=== PATIENT | female | born 1965 | race Caucasian/White ===

== ENCOUNTER 2018-01-08 04:54 | Inpatient (IN) | payer SELFPAY ==
[2018-01-08] MEDS ORDERED: DIPHENOX/ATROP SULF 1 TAB PO ONE (05:49)
[2018-01-08] MEDS ORDERED: NA CHLORIDE 0.9% 1,000 ML ONE (05:49)
[2018-01-08 05:53] LABS: Absolute Lymphocytes (CBC) 4.5 K/uL (0.7-4.9); Absolute Monocytes 0.3 K/uL (0.1-1.3); Absolute Neutrophil 6.6 K/uL (1.8-8.0); Basophils % 0.8 % (0-1.3); Eosinophils % 0.7 % (0-4.4); Hematocrit 43.8 % (36.0-45.0); Lymphocytes % 38.9 % (15.3-44.8); MCH 29.3 pg (27.0-35.0); MCV 89.4 fL (80-100); MPV 10.6 fL (7.6-11.3); Monocytes % 2.5 % (3.3-12.3); RBC Red Blood Cell Count 4.89 M/uL (3.86-4.86)
[2018-01-08 06:06] LABS: Bilirubin Direct 0.1 mg/dL (0-0.2); Bilirubin Total 0.4 mg/dL (0.3-1.2); Protein, Total 6.7 g/dL (6.0-8.3)
[2018-01-08 06:09] LABS: Potassium 2.8 mEq/L (3.6-5.0)
[2018-01-08] MEDS ORDERED: DIPHENHYDRAMINE 50 MG/ML VIAL ONE (06:51)
--- NOTE | 2018-01-08 07:08 | ER ---
Nurse's Notes [facility] Name: Astrid Gerber Age: 52 yrs Sex: Female : 1965 Arrival Date: 01/08/2018 Time: 04:57 Bed 18 Private MD: Diagnosis: Diarrhea, unspecified;Hypokalemia;Acute kidney failure Presentation: 01/08 04:55 Presenting complaint: Patient states: that at 0300 this morning that she started to have abd pain, nausea, diarrhea, numbness to all exts, felling hot and passed out hitting her head. Pt is awake, alert and oriented. Transition of care: patient was not received from another setting of care. Onset of symptoms was January 08, 2018 at 03:00. 04:55 Method Of Arrival: EMS: [facility] 04:55 Acuity: JENA 3 fc 07:16 Care prior to arrival: None. 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 - Social history:: Smoking status: Patient/guardian denies using tobacco, Patient uses alcohol, occasionally. Screenin:06 Abuse screen: Denies threats or abuse. Nutritional screening: No deficits noted. fc Tuberculosis screening: Fall Risk Fall in past 12 months (25 points). No secondary diagnosis (0 pts). No IV (0 pts). Ambulatory Aid- None/Bed Rest/Nurse Assist (0 pts). Gait- Weak (10 pts.). Mental Status- Overestimates/Forgets Limitations (15 pts.). Total Franks Fall Scale indicates Low Risk Score (25-44 pts). Fall prevention measures have been instituted. Side Rails Up X 2 Placed close to Nursing Station Frequent Obs/Assesments occuring As available Patient and Family Educated on Fall Prevention Program and strategies. Assessment: 07:15 General: Appears in no apparent distress. uncomfortable, Behavior is calm, cooperative, hj appropriate for age. Pain: Complains of pain in abdomen. Neuro: Level of Consciousness is awake, alert, obeys commands, Oriented to person, place, time, situation, Appropriate for age. Cardiovascular: Capillary refill < 3 seconds Patient's skin is warm and dry. Respiratory: Airway is patent Respiratory effort is even, unlabored, Respiratory pattern is regular, symmetrical. GI: Bowel sounds present X 4 quads. Abd is soft. : No signs and/or symptoms were reported regarding the genitourinary system. EENT: No signs and/or symptoms were reported regarding the EENT system. Derm: No signs and/or symptoms reported regarding the dermatologic system. Musculoskeletal: No signs and/or symptoms reported regarding the musculoskeletal system. 08:34 Reassessment: diarrhea x4, MD aware;. Vital Signs: 04:55 BP 132 / 85; Pulse 110; Resp 18; Temp 97.0(O); Pulse Ox 98% on R/A; Weight 102.06 kg fc (R); Height 5 ft. 4 in. (162.56 cm) (R); Pain 10/10; 07:17 BP 130 / 84; Pulse 85; Resp 18; Pulse Ox 100% on R/A; hj 04:55 Body Mass Index 38.62 (102.06 kg, 162.56 cm) ED Course: 04:55 Arm band placed on Patient placed in an exam room, on a stretcher. fc 04:55 Patient has correct armband on for positive identification. Placed in gown. Bed in low fc position. Call light in reach. Side rails up X2. 04:55 No provider procedures requiring assistance completed. fc 04:57 Patient arrived in ED. em1 05:02 Triage completed. fc 05:08 Tim Zapata MD is Attending Physician. tw4 05:19 Chao Mendoza, YANICK is Primary Nurse. bp 07:00 Initial lab(s) drawn, by ED staff, sent to lab. Inserted saline lock: 20 gauge in right hj antecubital area, using aseptic technique. Blood collected. 07:06 Justice Zaragoza MD is Hospitalizing Provider. tw4 Administered Medications: 05:33 Drug: NS 0.9% 1000 ml Route: IV; Rate: 1 bolus; Site: right antecubital; aa1 08:38 Follow up: IV Status: Completed infusion 05:33 Drug: LoMOTIL 2 tabs Route: PO; aa1 06:58 Follow up: Response: No adverse reaction bp 06:30 Drug: Benadryl 12.5 mg Route: IVP; Site: right antecubital; bp 06:59 Follow up: Response: No adverse reaction bp Outcome: 07:07 Decision to Hospitalize by Provider. tw4 08:32 Admitted to Tele accompanied by tech, family with patient, via wheelchair, room 417, with chart, Report called to YANICK Cavanaugh 08:32 Condition: stable 08:32 Instructed on the need for admit, Demonstrated understanding of instructions. 08:54 Patient left the ED. Signatures: Desire Rose RN RN aa1 Drea Muller RN RN Rodolfo Espinoza em1 Lance Jones RN RN hj Peltier, Brian RN RN Tim Pagan MD MD tw4
--- NOTE | 2018-01-08 07:08 | EDPHYS ---
Physician Documentation [facility] Name: Astrid Gerber Age: 52 yrs Sex: Female : 1965 Arrival Date: 01/08/2018 Time: 04:57 Bed 18 Private MD: ED Physician Tim Zapata HPI: 01/08 07:07 This 52 yrs old Female presents to ER via EMS with complaints of Abdominal tw4 Pain. 07:07 The patient presents to the emergency department with diarrhea. Onset: The tw4 symptoms/episode began/occurred just prior to arrival, today. Possible causes: unknown. The symptoms are aggravated by nothing. The symptoms are alleviated by nothing. Associated signs and symptoms: The patient has no apparent associated signs or symptoms. Severity of symptoms: At their worst the symptoms were moderate in the emergency department the symptoms are unchanged. The patient has not experienced similar symptoms in the past. 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 - Social history:: Smoking status: Patient/guardian denies using tobacco, Patient uses alcohol, occasionally. ROS: 07:07 Constitutional: Negative for fever, chills, and weight loss, Cardiovascular: Negative tw4 for chest pain, palpitations, and edema, Respiratory: Negative for shortness of breath, cough, wheezing, and pleuritic chest pain. 07:07 Back: Negative for injury and pain. 07:07 Abdomen/GI: Positive for diarrhea, Negative for abdominal pain, nausea and vomiting, nausea, vomiting, and diarrhea, nausea, vomiting, abdominal cramps, black/tarry stool, rectal pain, rectal bleeding, bowel incontinence. Exam: 07:07 Constitutional: This is a well developed, well nourished patient who is awake, alert, tw4 and in no acute distress. Head/Face: Normocephalic, atraumatic. Chest/axilla: Normal chest wall appearance and motion. Nontender with no deformity. No lesions are appreciated. Cardiovascular: Regular rate and rhythm with a normal S1 and S2. No gallops, murmurs, or rubs. Normal PMI, no JVD. No pulse deficits. Respiratory: Lungs have equal breath sounds bilaterally, clear to auscultation and percussion. No rales, rhonchi or wheezes noted. No increased work of breathing, no retractions or nasal flaring. 07:07 MS/ Extremity: Pulses equal, no cyanosis. Neurovascular intact. Full, normal range of motion. Neuro: Awake and alert, GCS 15, oriented to person, place, time, and situation. Cranial nerves II-XII grossly intact. Motor strength 5/5 in all extremities. Sensory grossly intact. Cerebellar exam normal. Normal gait. 07:07 Abdomen/GI: Inspection: abdomen appears normal, Bowel sounds: hyperactive, Palpation: mild abdominal tenderness, in all quadrants. Vital Signs: 04:55 BP 132 / 85; Pulse 110; Resp 18; Temp 97.0(O); Pulse Ox 98% on R/A; Weight 102.06 kg fc (R); Height 5 ft. 4 in. (162.56 cm) (R); Pain 10/10; 07:17 BP 130 / 84; Pulse 85; Resp 18; Pulse Ox 100% on R/A; hj 04:55 Body Mass Index 38.62 (102.06 kg, 162.56 cm) fc MDM: 05:08 Patient medically screened. tw4 07:07 Differential diagnosis: Nonspecific abd pain, gastritis, viral gastroenteritis, tw4 gastroenteritis. Data reviewed: vital signs, nurses notes. Test interpretation: by ED physician or midlevel provider: ECG. Counseling: I had a detailed discussion with the patient and/or guardian regarding: the historical points, exam findings, and any diagnostic results supporting the discharge/admit diagnosis. Physician consultation: Justice Zaragoza MD was contacted at 07:05, regarding admission, patient's condition, and will see patient in inpatient room. Admission orders: after a detailed discussion of the patient's condition and case, the admit orders are written by me. ED course: pt received IVF hydration and potassium replacement. Will admit to for acute kidney injury and fluid resuscitation . 07:09 Data interpreted: Pulse oximetry: Interpretation: normal. tw4 01/08 05:09 Order name: Amylase, Serum tw4 01/08 05:09 Order name: Basic Metabolic Panel tw4 01/08 05:09 Order name: CBC with Diff; Complete Time: 06:00 tw4 01/08 05:09 Order name: Creatinine for Radiology; Complete Time: 06:00 tw4 01/08 05:09 Order name: Hepatic Function 4 01/08 05:09 Order name: Lipase; Complete Time: 06:18 tw4 01/08 06:18 Interpretation: Within normal limits: LIP 34. tw4 01/08 05:09 Order name: Urine Microscopic Only 4 01/08 05:09 Order name: IV Saline Lock; Complete Time: 06:16 tw4 01/08 05:10 Order name: Amylase Level; Complete Time: 06:18 EDMS 01/08 06:18 Interpretation: Abnormal: ETHAN 211. 01/08 05:10 Order name: Basic Metabolic Panel; Complete Time: 06:18 EDMS 01/08 06:18 Interpretation: Normal except: CRE 1.27; BUN 23; GLUC 235; GFR 44; K 2.8. tw4 01/08 05:10 Order name: Liver (Hepatic) Function; Complete Time: 06:18 EDMS 01/08 06:18 Interpretation: Within normal limits. 4 01/08 05:09 Order name: Labs collected and sent; Complete Time: 06:16 tw4 Administered Medications: 05:33 Drug: NS 0.9% 1000 ml Route: IV; Rate: 1 bolus; Site: right antecubital; aa1 08:38 Follow up: IV Status: Completed infusion hj 05:33 Drug: LoMOTIL 2 tabs Route: PO; aa1 06:58 Follow up: Response: No adverse reaction bp 06:30 Drug: Benadryl 12.5 mg Route: IVP; Site: right antecubital; bp 06:59 Follow up: Response: No adverse reaction bp Disposition: 01/08/18 07:07 Hospitalization ordered by Justice Zaragoza for Observation. Preliminary diagnosis are Diarrhea, unspecified, Hypokalemia, Acute kidney failure. - Bed requested for Telemetry/MedSurg (observation). - Status is Observation. hj - Condition is Stable. - Problem is new. - Symptoms are unchanged. UTI on Admission? No Signatures: Dispatcher [employer] EDNJ Astrid Wayne RN RN kl Kern, Alissa, RN RN aa Drea Muller RN RN Lance Jones RN RN hj Kelly, Chao, Tim Liu RN, MD MD tw4 Corrections: (The following items were deleted from the chart) 08:38 05:09 Urine Dipstick-Ancillary ordered. tw4
[2018-01-08] MEDS ORDERED: LOPERAMIDE HCL 2 MG CAPSULE PO PRN (08:07)
[2018-01-08 09:15] VITALS: BMI 38.6
[2018-01-08] MEDS: KCL 20 MEQ/100 mL IVPB 20 MEQ/100 ML BAG IV SCH ×2 (09:44→13:16)
[2018-01-08] MEDS: NACHLORIDE 0.45% 1,000 ML IV SCH ×2 (09:44→18:32)
[2018-01-08 11:42] LABS: A1c Component 0.66 mg/dL; Hemoglobin A1c 6.1 % (4-6.0)
[2018-01-08] MEDS ORDERED: CYCLOBENZAPRINE 10 MG TAB PO PRN (12:00)
--- NOTE | 2018-01-08 12:38 | RAD REPORT ---
EXAM DESCRIPTION: CTAbdomen Pelvis W Contrast - 01/08/2018 12:21 pm CLINICAL HISTORY: Abdominal pain. Diarrhea. COMPARISON: None. TECHNIQUE: Biphasic CT imaging of the abdomen and pelvis was performed with 100 ml non-ionic IV cont rast. All CT scans are performed using dose optimization technique as appropriate and may include automated exposure control or mA/KV adjustment according to patient size. FINDINGS: The lung bases are clear. The liver demonstrates diffuse fatty infiltration. Several low-density lesions are noted, probably be nign cysts. No intrahepatic biliary dilatation. The spleen, pancreas, adrenal glands and kidneys are within normal limits. No bowel obstruction, free air, free fluid or abscess. Small fat containing umbilical hernia. The adriana endix is normal. No evidence of significant lymphadenopathy. No suspicious bony findings. IMPRESSION: No acute intra-abdominal or pelvic finding. Prominent fatty liver.
[2018-01-08 13:20] LABS: Hematocrit 40.5 % (36.0-45.0)
[2018-01-08] MEDS ORDERED: SODIUM CHLORIDE 0.9% 10ML INJ IV PRN (13:38)
[2018-01-08 13:54] LABS: Urine Bacteria >50 /HPF (<20); Urine RBC <5 /HPF (NONE SEEN)
[2018-01-08 13:55] LABS: Urine Culture Reflex Order REFLEXED
[2018-01-08 13:56] LABS: Calcium Oxalate Crystals- Ur PRESENT (NONE SEEN)
[2018-01-08] MEDS: PANTOPRAZOLE 40 MG INJ IVP SCH ×2 (15:15→21:39)
[2018-01-08] MEDS ORDERED: ENOXAPARIN 40 MG/0.4 ML SQ SCH (17:00)
[2018-01-08] MEDS ORDERED: MORPHINE 2 MG/ML SYR IV PRN (18:52)
[2018-01-08] MEDS ORDERED: MORPHINE 4 MG/ML SYR ONE (19:46)
[2018-01-08] MEDS: LORATADINE/PSEUDO 12HR TAB PO SCH (21:39)
--- NOTE | 2018-01-08 22:04 | HP ---
Date of Admission: 01/08/2018 Code Status: Full. Chief Complaint: Diarrhea. Primary Care Physician: Padmini Villalpando D.O. History Of Present Illness: The patient is a 52-year-old female with past medical history of hypertension, obesity, who has had recurrent episodes of constipation and diarrhea in the past, who comes in with an acute episode of abdominal pain, which is generalized, associated with some diarrhea. The patient has had multiple bowel movements past night. The patient states that the diarrhea is watery, loose and had possibly some blood mixed in it. The patient also reports some nausea and vomiting. She denies any fevers. Does report some chills. No shortness of breath or chest pain. No unusual foods or travel outside the country. The patient also reports that she breaks out in rash on her upper extremities and hives. She took Benadryl earlier and was able to control the hives. The patient came into the ER for further evaluation of her symptoms. She was found to be tachycardic at a rate of 110. Her lab workup revealed low potassium at 2.8, creatinine was elevated at 1.27 which is around her baseline. Amylase was also elevated at 211, lipase was normal. WBC count was 11.6. The patient was referred for admission for diarrhea and abdominal pain. When seen in the ER, the patient was awake, alert, oriented x3 , in some mild distress due to pain. Past Medical History: Hypertension, obesity, allergies, fatty liver disease. Past Surgical History: Laparoscopic hysterectomy and x2. Allergies: TO PENICILLIN, WHICH CAUSES HIVES. Medications: Reviewed. Social History: The patient denies any tobacco use or illicit drug use. The patient does drink occasionally. Works at the [employer]. The patient has . Has 2 children. Has good family support. Family History: Mother has heart disease. Father has hypertension. Review of Systems: An 11-point systems is reviewed, negative except as per HPI. Physical Examination: Vital Signs: Temperature 97, heart rate 110, blood pressure 132/85, respirations 18, O2 98% on room air. General: Awake, alert, oriented x3, in some mild distress. Somewhat ill- appearing, obese female. HEENT: Normocephalic and atraumatic. PERRLA. EOMI. Moist mucous membranes. Oropharynx is clear. Conjunctiva anicteric. Normal dentition. Neck: Supple. No JVD. Trachea midline. CV: S1, S2. Sinus tachycardia. Peripheral pulses are present. No murmurs. Respiratory: Moving air well bilaterally. No wheezing. No stridor. No use of accessory muscles. Gastrointestinal: Mild tenderness to palpation in the epigastric region. No rebound or guarding. No rigidity. Unable to properly assess for masses due to the patient's body habitus. Extremities: No clubbing, cyanosis, or edema. No calf tenderness. Neurologic: Cranial nerves 2-12 intact grossly. No focal neurological deficit. Speech is normal. Strength is 5/5 in bilateral upper and lower extremities. Skin: No rashes. Normal skin turgor. Laboratory Data: WBC count 11.6, H and H 14.3 and 43.8, platelets 279, neutrophils 57.1. Sodium 138, potassium 2.8, chloride 101, CO2 22, BUN 23, creatinine 1.22, glucose 235, calcium 10.2, total bilirubin 0.4, AST 39, ALT 50 , alkaline phosphatase 93, albumin 4, amylase 211, lipase 34. UA is pending. Assessment And Plan: A 52-year-old female with: 1. Acute generalized abdominal pain may be secondary to viral gastroenteritis. We will obtain CT scan of the abdomen and pelvis with contrast. 2. Acute gastroenteritis, viral versus bacterial. We will obtain stool studies including stool culture, C. diff. We will continue with IV fluids. Clear liquid diet. 3. Obesity, body mass index 38.6. 4. Essential hypertension. Resume home medications as appropriate. 5. History of fatty liver disease. 6. Hypokalemia. We will replace and monitor. We will check magnesium level. 7. Chronic kidney disease. Creatinine is 1.22, around her baseline. Continue with IV fluids and monitor. 8. Hyperglycemia. The patient denies any history of diabetes. We will check hemoglobin A1c. 9. Gastrointestinal and deep venous thrombosis prophylaxis with PPI and Lovenox. Plan: Admit the patient to Med-Surg and place as observation. ADDENDUM: Patient had episode of melanotic stool. DC lovenox (not given) SCDs. GI consult. Monitor SO PÉREZ/DOMINGUEZ Voice ID: [id number] [facility] HOSPITALChris
[2018-01-09] MEDS ORDERED: MORPHINE 4 MG/ML SYR ONE ×2 (00:55→05:33)
[2018-01-09] MEDS: NACHLORIDE 0.45% 1,000 ML IV SCH ×4 (01:01→21:32)
[2018-01-09 06:25] LABS: Absolute Lymphocytes (CBC) 1.6 K/uL (0.7-4.9); Absolute Monocytes 0.7 K/uL (0.1-1.3); Absolute Neutrophil 8.7 K/uL (1.8-8.0); Basophils % 0.1 % (0-1.3); Eosinophils % 0.7 % (0-4.4); Hematocrit 37.6 % (36.0-45.0); MCH 29.4 pg (27.0-35.0); MCV 88.5 fL (80-100); MPV 10.2 fL (7.6-11.3); Monocytes % 6.5 % (3.3-12.3); RBC Red Blood Cell Count 4.26 M/uL (3.86-4.86)
[2018-01-09 07:37] LABS: Albumin 3.5 g/dL (3.2-5.5); Bilirubin Total 0.7 mg/dL (0.3-1.2); Potassium 4.3 mEq/L (3.6-5.0); Protein, Total 6.2 g/dL (6.0-8.3)
[2018-01-09] MEDS: PANTOPRAZOLE 40 MG INJ IVP SCH (08:38)
[2018-01-09] MEDS: LORATADINE/PSEUDO 12HR TAB PO SCH ×2 (08:38→21:29)
[2018-01-09] MEDS ORDERED: LORATADINE PO SCH (09:00)
[2018-01-09] MEDS ORDERED: PSEUDOEPHEDRINE PO SCH (09:00)
[2018-01-09] MEDS ORDERED: ERYTHROMYCIN 500 MG in NA CHLORIDE 0.9% 100 ML IV ONE (10:00)
--- NOTE | 2018-01-09 10:24 | EKG ---
Test Date: 2018-01-08 Test Time: 12:45:09 Screw Machine Set Up Operator: AED MEASUREMENT RESULTS: Intervals: Rate: 76 VT: 166 QRSD: 92 QT: 382 QTc: 429 [place]: P: 45 VT: 166 QRS: 69 T: 26 INTERPRETIVE STATEMENTS: Normal sinus rhythm Normal ECG Compared to ECG 06/27/2016 16:14:07 No significant changes Electronically Signed On 01-09-18 10:23:28 CDT by Michael Cade
[2018-01-09] MEDS ORDERED: METOCLOPRAMIDE 10 MG/2mL INJ IV ONE (11:00)
[2018-01-09] MEDS ORDERED: PROPOFOL 200 MG/20 ML VIAL IV ONE ×2 (13:35→14:30)
[2018-01-09] MEDS ORDERED: Ringers Lactate 1,000 ML IV ONE (13:59)
--- NOTE | 2018-01-09 14:30 | ENDO RPT ---
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 TOPICAL ANESTHETIC: none CONSENT: The patient understands the risks and benefits of the procedure and understands that these risks include, but are not limited to: sedation, allergic reaction, infection, perforation and/or bleeding. Alternative means of evaluation and treatment include, among others: physical exam, x-rays, and/or surgical intervention. The patient elects to proceed with this endoscopic procedure. DESCRIPTION OF PROCEDURE: During intra-op preparation period all mechanical medical equipment was checked for proper function. Hand hygiene and appropriate measures for infection prevention was taken. Procedure, possible complications, and alternatives including but not limited to the possibility of bleeding, perforation, tear, infection, sepsis, need for surgery, need for blood transfusion, and anesthesia related complications were explained to the patient. After the risks, benefits and alternatives of the procedure were thoroughly explained, Informed consent was verified, confirmed and timeout was successfully executed by the treatment team. The patient was placed in the left lateral position. The patient was anesthetized with topical anesthesia. Through the anesthetized oropharyngeal area, the scope was passed without any difficulty. The EG-[id number] ([id number]) endoscope was introduced through the mouth and advanced to the third portion of the duodenum. Retroflexed views revealed a small hiatal hernia. The gastroscope was then slowly withdrawn and removed. LA Class B esophagitis was found in the lower esophagus. A small hiatal hernia was found Mild gastritis was found in the body and the antrum of the stomach. Multiple biopsies were obtained and sent to pathology. Multiple (2) were found in the anterior distal body of the stomach. A 2 mm clean-based ulcer was found in the pre-pyloric antrum. Multiple (2) erosions were found in the pre-pyloric antrum. Duodenitis was found in the bulb of the duodenum. Shallow 3 mm clean-based ulcer was found in the bulb of the duodenum. ADVERSE EVENTS: There were no complications. IMPRESSIONS: 1. LA Class B esophagitis in the lower esophagus 2. A small hiatal hernia 3. Mild gastritis in the body and the antrum of the stomach, s/p biopsies heme at edges in the anterior distal body of the stomach 5. 2 mm clean-based ulcer in the pre-pyloric antrum 6. Multiple (2) erosions in the pre-pyloric antrum 7. Duodenitis in the bulb of the duodenum 8. Shallow 3 mm clean-based ulcer in the bulb of the duodenum RECOMMENDATIONS: 1. await biopsy results 2. acid suppression therapy REPEAT EXAM: Ever Mathias Dr eSigned: Ever Mathias Dr 01/09/2018 2:29 PM cc: CPT CODES: ICD9 CODES: PATIENT NAME: Astrid Gerber MR#: [id number]
--- NOTE | 2018-01-09 14:57 | PN ---
Date of Progress Note: 01/09/2018 Subjective: The patient is seen and examined. Chart reviewed and case discussed with the RN. The p atient going for EGD this morning. The patient states that she is still having bright red blood per rectum. Review of Systems: Negative except as above. Medications: Reviewed. Physical Examination: Vital Signs: Temperature 98.4, heart rate 100, blood pressure 138/56, respirations 16, O2 97% on thao m air. General: Awake, alert, and oriented x3, in no distress. Obese female, 38.6 BMI. CV: S1, S2. No murmurs. Sinus tachycardia. Peripheral pulses present. Respiratory: Moving air well bilaterally. No wheezing. Gastrointestinal: Abdomen is soft. Mild tenderness to palpation. No guarding or rigidity. Mild di stention. Bowel sounds are positive. Extremities: No clubbing, cyanosis. Trace pedal edema. Neurologic: Nonfocal. Laboratory Data: Sodium 135, potassium 4.3, chloride 105, CO2 24, BUN 14, creatinine 0.72, glucose 1 36. Hemoglobin A1c 6.1%. Calcium 9.4, lipase 12. WBC 11.1, H and H 12.5, 37.6, platelets 172, neut rophils 78.7%. C. diff pending. Stool cultures pending. Fecal leukocyte stain shows no WBCs. CT s can of the abdomen and pelvis shows no acute inter abdominal pelvic finding, prominent fatty liver. Assessment And Plan: A 52-year-old female with; 1.Acute generalized abdominal pain, likely secondary to viral gastroenteritis versus gastrointestina l bleed. 2.Acute gastrointestinal bleed with bright red blood per rectum. Gastroenterology on the case. The patient will be going for EGD this morning. The patient does have history of hiatal hernia and has been taking Excedrin [id number] for the past few days. 3.Acute gastroenteritis. We will follow up on Clostridium difficile and stool culture. Continue IV fluids. 4.Obesity, BMI 38.6. 5.Essential hypertension, stable. 6.History of fatty liver disease, counseled. 7.Hypokalemia. Replace and monitor. 8.Prediabetes. The patient has A1c of 6.1%. Diabetic education. 9.Gastrointestinal and deep venous thrombosis prophylaxis with PPI and SCDs. No chemical anticoagul ation due to bleed. Plan: Monitor H and H. SA/MODL Voice ID: [id number] Report ID: [id number]
[2018-01-09] MEDS: MORPHINE 4 MG/ML SYR IV PRN (16:43)
[2018-01-09] MEDS: PANTOPRAZOLE INJ 80 MG in NA CHLORIDE 0.9% 250 ML IV SCH (16:43)
--- NOTE | 2018-01-09 19:38 | CON ---
Date of Consultation: 01/09/2018 Reason For Consultation: Acute change in bowel habits with hematochezia and greater than left upper quadrant and general abdominal pain with nausea, fevers, chills, night sweats. History Of Present Illness: The patient is a 52-year-old white female with history of hypertension, obesity. The patient came to hospital due to acute episode of abdominal pain, change in bowel habits , diarrhea, hematochezia with fevers, chills, night sweats, shortness of breath, and nausea. The pat ient states that she has been having these episodes over the past 2 years since a trip to [place], pos sibly related to a trip to [place] to [facility] on [address] [address] with her friend. She is the onl y one who has been having these recurrent episodes. She states it mainly happens at night, which occ ur with abdominal pain, fevers, chills, night sweats, nausea, vomiting, hives, shortness of breath, c hange in bowel habits, diarrhea, however, this is the first time that she has had hematochezia with event and she sought medical attention for that and the fact that upon awakening at 3 o'clock in morning, she once again had the abdominal pain, predominantly left upper quadrant greater than le ft lower quadrant, greater than generalized pain with fevers, chills, night sweats, nausea, no emesis in this event with diarrhea, hives, shortness of breath. However, this time she started having chris tochezia, but she has never seen before. The patient states, she ate some hot chili chicken from [employer] at 2 o'clock for lunch. She thinks that might be involved with this and also she had a steak w ith mushrooms at 10 p.m. before prior to going to bed at night on Wednesday night before this episode wo ke her up approximately 5 hours later at 3 o'clock in the morning with these severe episodes. She pa ssed out at 3:30 at home by herself when she came to, she woke and saw she was on the floor, did not know how she got there, called the father and finally called 911. Ambulance came and picked her up a nd brought to the hospital where she was noted to be tachycardic with a white count of 11.6, creatini ne elevated at 1.27, heart rate of about 310, potassium low at 2.8, amylase elevated at 211, but norm al lipase. The patient was admitted to the hospital for further evaluation and care. The patient st ates these episodes occur about approximately every month over the past 2 years. Past Medical History: Significant for hypertension, obesity. Allergies: FATTY LIVER DISEASE. Past Surgical History: Laparoscopic hysterectomy and bilateral salpingo-oophorectomy and x 2. Allergies: PENICILLIN CAUSES HIVES. Medications: See list. We will go over that in a minute. Social History: She is . Two children, son and daughter. Daughter at [employer] at [employer]. The son works at [employer] for a company called [employer]. No tobacco. Occasional alcohol. Family History: Father alive with hypertension. Mother is alive with coronary artery disease and ca rdiac stent. Review of Systems: The patient has left lower quadrant pain greater than generalized abdominal pain with nausea, fevers, chills, night sweats, shortness of breath. No of emesis right now. No sick contacts. She does hav e hematochezia, change in bowel habits, diarrhea, syncope prior to admission. She denies any hematem esis, coffee-grounds emesis, melena, hemoptysis, hematuria, dysuria, polydipsia, chest pain. She jus t has some shortness of breath. No seizure, syncope. No depression, anxiety noted. She did have fe vers at night. No muscle aches, joint aches, backaches. No depression, anxiety noted. Physical Examination: Vital Signs: The patient is 5 foot 4, 225 pounds. BMI 39 kg/m2. Temperature 99.2 degrees Fahrenhei t, pulse 108, respirations 20, blood pressure 138/76, O2 saturation 97% to 98%. General: She is an obese female, lying in bed, in no acute distress. Laughing and talking without c oncern about what is going on inside her body. HEENT: Normocephalic, atraumatic. Anicteric. Pupils equal, round, and reactive to light. Hair dis hevelled. Neck: Supple, no masses. Respirations: Clear to auscultation bilaterally. Cardiac: Slightly tachycardic. No gallops or rubs. Abdomen: Positive bowel sounds. Soft, nondistended, obese. Pain greater left upper quadrant, great er than generalized abdominal pain. Some mild guarding. No rebound. No peritoneal or Kramer sign. Extremities: No clubbing, cyanosis. She says some slight edema, she feels in the toes, it is hard t o discern trace edema at best. Neuro: Alert and oriented x3. Grossly nonfocal. 5/5 motor strength. Sensation intact to light touc h. Laboratory Data: The patient has a white count of 11.1 down from 11.6 yesterday, hemoglobin 12.5 uday n from 14.3 yesterday and hematocrit of 38, MCV of 89, platelet count 172 down from 279 yesterday, po chrissy of 79%, lymphocytes 14%, monocytes 7%, eosinophils 0.7%. Sodium 135, potassium 4.3, chloride 105 , bicarb 24, BUN of 14, creatinine of 0.7, glucose 136. Hemoglobin A1c of 6.1, calcium 9.4, magnesiu m 1.9, total bilirubin 0.7, AST 28, ALT of 40, alkaline phosphatase 80, total protein 6.2, albumin 3. 5, globulin 2.7, lipase 12. The patient's urine shows 10-20 squamous epithelials, greater than 50 ba cteria, otherwise negative looks like reflex. Urine culture done. CT abdomen and pelvis reveals fat ty liver, otherwise negative. Assessment: 1.Left upper quadrant greater than left lower quadrant generalized abdominal pain with nausea, fever s, chills, night sweats, shortness of breath. No change in bowel habits. Diarrhea currently over e past 2 years. Approximately over a month waking up at night, mainly. Eats late lunch around 12 to 2 and then laid down from 9 to 10, seems to be awakening her from sleep at night, could be due to me senteric ischemia or infection she got in [place] prior to 2 years, where this started or other, like peptic ulcer disease or some other luminal GI disorder. 2.Hematochezia. Need to investigate with a colonoscopy, possibly as outpatient. This is probably r elated to acute infection causing bleeding of the mucosa, maybe also colitis or other. 3.Change in bowel habits diarrhea. 4.Syncope Wednesday night at 3:30 a.m., awakening in the bathroom and called 911 and ambulance transfer red her to the hospital. 5.Abnormal CT revealing fatty liver. 6.Elevated glucose of 136, fasting and elevated hemoglobin A1c of 6.1, indicative of diabetes new on set. 7.History of hypertension, obesity, x2, hysterectomy, bilateral salpingo-oophorectomy. Recommendation: 1.Check stool studies. Continue IV fluids, IV antibiotics. 2.P.r.n. pain medications, antiemetics. 3.Proceed EGD. 4.Check PT/PTT. 5.Consider colonoscopy as indicated. SHONDA/DOMINGUEZ Voice ID: [id number] Report ID: [id number]
[2018-01-09] MEDS: ACETAMINOPHEN 500 MG TAB PO PRN (21:29)
[2018-01-10] MEDS: NACHLORIDE 0.45% 1,000 ML IV SCH ×3 (01:00→11:00)
[2018-01-10] MEDS: PANTOPRAZOLE INJ 80 MG in NA CHLORIDE 0.9% 250 ML IV SCH (01:09)
[2018-01-10] MEDS: ACETAMINOPHEN 500 MG TAB PO PRN ×2 (01:13→16:55)
[2018-01-10 04:21] LABS: Absolute Monocytes 1.3 K/uL (0.1-1.3); Absolute Neutrophil 8.3 K/uL (1.8-8.0); Basophils % 0.2 % (0-1.3); Eosinophils % 1.3 % (0-4.4); Hematocrit 33.9 % (36.0-45.0); Lymphocytes % 16.7 % (15.3-44.8); MCH 30.1 pg (27.0-35.0); MCV 87.9 fL (80-100); MPV 10.3 fL (7.6-11.3); Monocytes % 11.3 % (3.3-12.3); RBC Red Blood Cell Count 3.85 M/uL (3.86-4.86)
[2018-01-10] MEDS: MORPHINE 4 MG/ML SYR IV PRN ×2 (04:49→10:17)
[2018-01-10 05:06] LABS: Albumin 3.2 g/dL (3.2-5.5); Bilirubin Total 0.9 mg/dL (0.3-1.2); Potassium 3.6 mEq/L (3.6-5.0)
[2018-01-10] MEDS ORDERED: POTASSIUM 25 MEQ EFFERV TAB PO ONE (06:42)
[2018-01-10] MEDS: LORATADINE/PSEUDO 12HR TAB PO SCH ×2 (10:17→21:11)
[2018-01-10] MEDS ORDERED: SODIUM CHLORIDE 0.9% 10ML INJ IV PRN (11:31)
--- NOTE | 2018-01-10 16:58 | P.PN ---
Subjective Date of Service: 01/10/18 Primary Care Provider: nONE Chief Complaint: Abd Pain Patient seen and examined at bedside with RN. Chart reviewed. Currently patient is complaining of having some bright red blood per rectum she states that it has improved which to currently has blood in her stool. Denies having any abdominal tenderness denies having any nausea vomiting at this time has been tolerating her clear liquid diet well Review of Systems 10-point ROS is otherwise unremarkable Physical Examination - Vital Signs Temperature: 100.9 F Blood Pressure: 132/76 Pulse: 84 Respirations: 20 Pulse Ox (%): 96 - Physical Exam General: Alert, In no apparent distress, Oriented x3 HEENT: Atraumatic, PERRLA, EOMI Neck: Supple, JVD not distended Respiratory: Clear to auscultation bilaterally, Normal air movement Cardiovascular: Regular rate/rhythm, Normal S1 S2 Gastrointestinal: Normal bowel sounds, No tenderness Musculoskeletal: No tenderness Integumentary: No rashes Neurological: Normal speech, Normal tone, Normal affect Lymphatics: No axilla or inguinal lymphadenopathy - Studies Microbiology Data (last 24 hrs): 01/08/18 12:00 Clean Catch Urine [place] Count - Final >100,000 CFU/ML. 01/08/18 12:00 Clean Catch Urine - Final 01/08/18 11:27 Stool Clostridium difficile Toxin Assay - Final Medications List Reviewed: Yes Assessment & Plan - Problems (Diagnosis) (1) GI bleed Current Visit: Yes Status: Acute Plan: Acute gastrointestinal bleed with bright red blood per rectum. -Gastroenterology consulted. Appreciated Reccs -S/P EGD - Gastritis and Small non bleeding Ulcer. -Continue with PPI -IV fluids and monitor H/H Qualifiers: GI bleed type/associated pathology: gastritis Gastritis type: chronic gastritis Qualified Code(s): K29.51 - Unspecified chronic gastritis with bleeding (2) Abdominal pain Onset Date: 01/10/18 Current Visit: Yes Status: Acute Plan: Most Likely Viral Gastroenteritis -Abd pain resolved now. -IV fluids Qualifiers: Abdominal location: generalized Qualified Code(s): R10.84 - Generalized abdominal pain (3) Essential (primary) hypertension Onset Date: 01/10/18 Current Visit: Yes Status: Chronic (4) GERD (gastroesophageal reflux disease) Current Visit: No Status: Chronic Qualifiers: Esophagitis presence: without esophagitis Qualified Code(s): K21.9 - Gastro -esophageal reflux disease without esophagitis Discharge Plan: Home Plan to discharge in: 24 Hours - Code Status/Comfort Care Code Status Assessed: Yes Critical Care: No
[2018-01-10] MEDS ORDERED: PANTOPRAZOLE 40 MG INJ IVP SCH (21:00)
[2018-01-10] MEDS ORDERED: FENTANYL CITR 100 MCG/2 ML IV ONE (21:10)
[2018-01-11 05:21] LABS: Absolute Lymphocytes (CBC) 2.1 K/uL (0.7-4.9); Absolute Monocytes 1.2 K/uL (0.1-1.3); Basophils % 0.4 % (0-1.3); Hematocrit 33.8 % (36.0-45.0); Lymphocytes % 17.8 % (15.3-44.8); MCH 29.7 pg (27.0-35.0); MCV 88.6 fL (80-100); Monocytes % 10.8 % (3.3-12.3); RBC Red Blood Cell Count 3.82 M/uL (3.86-4.86)
[2018-01-11 05:38] LABS: ALT/SGPT 23 IU/L (10-60); AST/SGOT 12 IU/L (10-42); Albumin 3.1 g/dL (3.2-5.5); Alkaline Phosphatase 80 IU/L (42-121); BUN Blood Urea Nitrogen 6 mg/dL (6-20); Bicarbonate 25 mEq/L (21-31); Bilirubin Total 0.7 mg/dL (0.3-1.2); Glomerular Filtration Rate > 90 mL/min (=/>90); Glucose Level 100 mg/dL (65-120); Potassium 3.4 mEq/L (3.6-5.0); Protein, Total 6.1 g/dL (6.0-8.3); Sodium Level 138 mEq/L (135-145)
[2018-01-11 06:03] LABS: Blood Morphology Comment NOT SEEN (NOT SEEN); Platelet Estimate ADEQ
[2018-01-11] MEDS ORDERED: POTASSIUM 25 MEQ EFFERV TAB PO ONE (06:25)
[2018-01-11] MEDS: LORATADINE/PSEUDO 12HR TAB PO SCH ×2 (09:00→21:50)
[2018-01-11] MEDS: BUMETANIDE 1 MG TABLET PO SCH (09:16)
[2018-01-11] MEDS: PANTOPRAZOLE 40MG TABLET PO SCH ×2 (09:16→17:29)
--- NOTE | 2018-01-11 12:57 | P.PN ---
Subjective Date of Service: 01/11/18 Primary Care Provider: nONE Chief Complaint: Abd Pain Patient seen and examined at bedside with RN. Chart reviewed. Currently patient is still complaining of having some blood per rectum but has improved from before. Denies having any abdominal tenderness denies having any nausea vomiting at this time. has been tolerating her clear liquid diet well Review of Systems 10-point ROS is otherwise unremarkable Physical Examination - Vital Signs Temperature: 98.6 F Blood Pressure: 111/62 Pulse: 87 Respirations: 16 Pulse Ox (%): 96 - Physical Exam General: Alert, In no apparent distress, Oriented x3 HEENT: Atraumatic, PERRLA, EOMI Neck: Supple, JVD not distended Respiratory: Clear to auscultation bilaterally, Normal air movement Cardiovascular: Regular rate/rhythm, Normal S1 S2 Gastrointestinal: Normal bowel sounds, No tenderness Musculoskeletal: No tenderness Integumentary: No rashes Neurological: Normal speech, Normal tone, Normal affect Lymphatics: No axilla or inguinal lymphadenopathy - Studies Microbiology Data (last 24 hrs): 01/08/18 12:00 Clean Catch Urine [place] Count - Final >100,000 CFU/ML. 01/08/18 12:00 Clean Catch Urine - Final Medications List Reviewed: Yes Assessment & Plan - Problems (Diagnosis) (1) GI bleed Current Visit: Yes Status: Acute Plan: Acute gastrointestinal bleed with bright red blood per rectum. -Gastroenterology consulted. Appreciated Reccs -S/P EGD - Gastritis and Small non bleeding Ulcer. -Continue with PPI -IV fluids and monitor H/H -Still with Mild blood per rectum. Will observe. Qualifiers: GI bleed type/associated pathology: gastritis Gastritis type: chronic gastritis Qualified Code(s): K29.51 - Unspecified chronic gastritis with bleeding (2) Abdominal pain Onset Date: 01/10/18 Current Visit: Yes Status: Acute Plan: Most Likely Viral Gastroenteritis -Abd pain resolved now. -IV fluids Qualifiers: Abdominal location: generalized Qualified Code(s): R10.84 - Generalized abdominal pain (3) Essential (primary) hypertension Onset Date: 01/10/18 Current Visit: Yes Status: Chronic (4) GERD (gastroesophageal reflux disease) Current Visit: No Status: Chronic Qualifiers: Esophagitis presence: without esophagitis Qualified Code(s): K21.9 - Gastro -esophageal reflux disease without esophagitis
--- NOTE | 2018-01-11 13:13 | P.PN ---
Subjective Date of Service: 01/11/18 Primary Care Provider: nONE Chief Complaint: Abd Pain Subjective: Improving (Her abdominal pain, N/V, hematochezia, diarrhea have all improved.) Review of Systems 10-point ROS is otherwise unremarkable Gastrointestinal: Abdominal Pain (improved), Diarrhea (Improved) Physical Examination - Vital Signs Temperature: 98.6 F Blood Pressure: 111/62 Pulse: 87 Respirations: 16 Pulse Ox (%): 96 - Physical Exam General: Alert, In no apparent distress, Oriented x3, Cooperative HEENT: Atraumatic, Normocephalic, PERRLA, EOMI Neck: Supple Respiratory: Normal air movement Cardiovascular: Normal pulses Gastrointestinal: Soft and benign, No rebound, Tenderness (mild general), Guarding (mild) Neurological: Normal speech, Normal strength at 5/5 x4 extr - Studies Microbiology Data (last 24 hrs): 01/08/18 12:00 Clean Catch Urine [place] Count - Final >100,000 CFU/ML. 01/08/18 12:00 Clean Catch Urine - Final Medications List Reviewed: Yes Assessment And Plan - Current Problems (Diagnosis) (1) LUQ abdominal pain Current Visit: Yes Status: Acute (2) LLQ abdominal pain Current Visit: Yes Status: Acute (3) Generalized abdominal pain Current Visit: Yes Status: Acute (4) Change in bowel habits Current Visit: Yes Status: Acute (5) Diarrhea Current Visit: Yes Status: Acute (6) Hematochezia Current Visit: Yes Status: Acute (7) Nausea Current Visit: Yes Status: Acute (8) Syncope Current Visit: Yes Status: Acute - Plan REC: 1) continue PPI therapy 2) IVFs 3) await stool studies 4) consider colonoscopy as indicated, but improving now
[2018-01-11] MEDS: ACETAMINOPHEN 500 MG TAB PO PRN (17:29)
[2018-01-11] MEDS ORDERED: POTASSIUM CL SA 10 MEQ TAB PO ONE (21:00)
[2018-01-12 04:15] LABS: Absolute Lymphocytes (CBC) 2.5 K/uL (0.7-4.9); Absolute Monocytes 1.2 K/uL (0.1-1.3); Absolute Neutrophil 9.6 K/uL (1.8-8.0); Basophils % 0.3 % (0-1.3); Eosinophils % 2.4 % (0-4.4); Hematocrit 36.8 % (36.0-45.0); Lymphocytes % 18.5 % (15.3-44.8); MCH 29.4 pg (27.0-35.0); MCV 88.1 fL (80-100); MPV 9.6 fL (7.6-11.3); Monocytes % 8.7 % (3.3-12.3); RBC Red Blood Cell Count 4.18 M/uL (3.86-4.86)
[2018-01-12 04:32] LABS: Albumin 3.4 g/dL (3.2-5.5); Bilirubin Total 0.6 mg/dL (0.3-1.2); Potassium 3.6 mEq/L (3.6-5.0); Protein, Total 6.7 g/dL (6.0-8.3)
[2018-01-12] MEDS ORDERED: POTASSIUM CL SA 10 MEQ TAB PO ONE (06:05)
[2018-01-12] MEDS: ACETAMINOPHEN 500 MG TAB PO PRN (06:52)
[2018-01-12 09:03] VITALS: BP 120/60; TEMP 98.9
[2018-01-12] MEDS: BUMETANIDE 1 MG TABLET PO SCH (09:29)
[2018-01-12] MEDS: PANTOPRAZOLE 40MG TABLET PO SCH (09:31)
[2018-01-12] MEDS: LORATADINE/PSEUDO 12HR TAB PO SCH (09:32)
[2018-01-12 10:53] VITALS: O2SAT 95
--- NOTE | 2018-01-12 11:25 | P.DS ---
Admission Date: 01/09/18 Discharge Date: 01/12/18 Primary Care Provider: nONE Disposition: ROUTINE DISCHARGE Discharge Condition: GOOD Reason for Admission: Abd Pain Consultations: GI Procedures: Endoscopy - Problems (1) GI bleed Current Visit: Yes Status: Resolved Qualifiers: GI bleed type/associated pathology: gastritis Gastritis type: chronic gastritis Qualified Code(s): K29.51 - Unspecified chronic gastritis with bleeding (2) Abdominal pain Onset Date: 01/10/18 Current Visit: Yes Status: Resolved Qualifiers: Abdominal location: generalized Qualified Code(s): R10.84 - Generalized abdominal pain (3) Essential (primary) hypertension Onset Date: 01/10/18 Current Visit: Yes Status: Chronic (4) GERD (gastroesophageal reflux disease) Current Visit: No Status: Chronic Qualifiers: Esophagitis presence: without esophagitis Qualified Code(s): K21.9 - Gastro -esophageal reflux disease without esophagitis Brief History of Present Illness: The patient is a 52-year-old female with past medical history of hypertension, obesity, who has had recurrent episodes of constipation and diarrhea in the past , who comes in with an acute episode of abdominal pain, which is generalized, associated with some diarrhea. The patient has had multiple bowel movements past night. The patient states that the diarrhea is watery, loose and had possibly some blood mixed in it. The patient also reports some nausea and vomiting. She denies any fevers. Does report some chills. No shortness of breath or chest pain. No unusual foods or travel outside the country. The patient also reports that she breaks out in rash on her upper extremities and hives. She took Benadryl earlier and was able to control the hives. The patient came into the ER for further evaluation of her symptoms. She was found to be tachycardic at a rate of 110. Her lab workup revealed low potassium at 2.8, creatinine was elevated at 1.27 which is around her baseline. Amylase was also elevated at 211, lipase was normal. WBC count was 11.6. The patient was referred for admission for diarrhea and abdominal pain. When seen in the ER, the patient was awake, alert, oriented x3, in some mild distress due to pain. Hospital Course: Overall during the hospital stay patient remained stable. The patient was initially admitted to the hospital for abdominal pain and melanotic stools. GI was consulted here in the hospital and patient had an endoscopy done which was consistent with hiatal hernia, gastritis 2 mm clean based ulcer in the pre-pyloric region along with duodenitis and duodenal ulcer is well. The patient was placed on IV fluids and IV Protonix at that time and biopsy was also collected during the procedure. Patient had marked improvement in her symptoms where her diarrhea resolved and she had no longer noticed melanotic stools in her BM. Patient then was advanced to a clear liquid diet which she tolerated well after which she was advanced to full liquid diet which she tolerated well as well. Patient was then switched over to p.o. Protonix and thus was discharged home under stable condition. On the day of discharge patient did have some elevated leukocytosis for which she was given a prescription for Cipro and Flagyl. Stool studies here in the hospital was remained negative. C. diff was negative along with other microbiology as well. Patient was given a followup appointment with GI was asked to get a colonoscopy done after the GI follow up. Patient demonstrated understanding and thus was discharged home. Vital Signs/Physical Exam: Temp Pulse Resp BP Pulse Ox 98.9 F 83 16 120/60 95 01/12/18 08:00 01/12/18 08:00 01/12/18 08:00 01/12/18 08:00 01/12/18 08:00 General: Alert, In no apparent distress HEENT: Atraumatic, PERRLA, EOMI Neck: Supple, JVD not distended Respiratory: Clear to auscultation bilaterally, Normal air movement Cardiovascular: Regular rate/rhythm, Normal S1 S2 Gastrointestinal: Normal bowel sounds, No tenderness Musculoskeletal: No tenderness Integumentary: No rashes Neurological: Normal speech, Normal tone, Normal affect Lymphatics: No axilla or inguinal lymphadenopathy Laboratory Data at Discharge: WBC 13.7 K/uL (4.3-10.9) H D 01/12/18 03:37 Hgb 12.3 g/dL (12.0-15.0) 01/12/18 03:37 Hct 36.8 % (36.0-45.0) 01/12/18 03:37 Plt Count 224 K/uL (152-406) D 01/12/18 03:37 Sodium 136 mEq/L (135-145) 01/12/18 03:37 Potassium 3.6 mEq/L (3.6-5.0) 01/12/18 03:37 BUN 8 mg/dL (6-20) 01/12/18 03:37 Creatinine 0.73 mg/dL (0.44-1.00) 01/12/18 03:37 Glucose 117 mg/dL (65-120) 01/12/18 03:37 Magnesium 1.9 mg/dL (1.8-2.5) 01/08/18 09:15 Total Bilirubin 0.6 mg/dL (0.3-1.2) 01/12/18 03:37 AST 22 IU/L (10-42) 01/12/18 03:37 ALT 32 IU/L (10-60) 01/12/18 03:37 Alkaline Phosphatase 94 IU/L (42-121) 01/12/18 03:37 Amylase 211 U/L (28-100) H* 01/08/18 05:20 Lipase 12 U/L (22-51) L 01/09/18 05:55 Home Medications: Bumetanide [Bumex] 1 tab PO DAILY 01/08/18 Cyclobenzaprine [Flexeril*] 10 mg PO Q8HP 01/08/18 Loratadine/Pseudoephedrine [Claritin-D 24 Hour Tablet] 1 tab PO DAILY 01/08/18 Phentermine HCl [Adipex-P] 1 tab PO DAILY 01/08/18 Ciprofloxacin HCl [Cipro 500 MG Tablet] 500 mg PO DAILY #10 tab 01/12/18 Metronidazole [Flagyl] 500 mg PO Q8H #30 tablet 01/12/18 New Medications: Ciprofloxacin HCl [Cipro 500 MG Tablet] 500 mg PO DAILY #10 tab Metronidazole [Flagyl] 500 mg PO Q8H #30 tablet Patient Discharge Instructions: Please f/u with PCP and GI in 1 week post discharge. You will need to have a colonoscopy outpt with GI doc. New medication. Cipro. Flagyl Diet: FLD for 3 days, Soft GI diet for next 3 days, then Reg diet Followup: Ever Mathias MD [ASSOCIATE-ACTIVE - CAN ADMIT] - 1 Week
== END 2018-01-12 11:32 | disposition home or self-care (01) | DRG 379 ==
LOC: ER 04:54 → ERHOLD 08:23 → 4TH 08:30 → OBSVTOIN 01-09 11:17
PROVIDERS: ADMIT Family Medicine; ATTEND Family Medicine
PROC: 0DB68ZX Excision of Stomach, Via Natural or Artificial Opening Endoscopic, Diagnostic (ICD-10-PCS; principal; 2018-01-09 13:00)
DX: K29.51 Unspecified chronic gastritis with bleeding (principal); R00.0 Tachycardia, unspecified; E87.6 Hypokalemia; R73.03 Prediabetes; K76.0 Fatty (change of) liver, not elsewhere classified; I12.9 Hypertensive chronic kidney disease with stage 1 through stage 4 chronic kidney disease, or unspecified chronic kidney disease; N18.9 Chronic kidney disease, unspecified; R73.9 Hyperglycemia, unspecified; K44.9 Diaphragmatic hernia without obstruction or gangrene; E66.9 Obesity, unspecified; K20.9 Esophagitis, unspecified; K29.60 Other gastritis without bleeding; K29.80 Duodenitis without bleeding; K26.9 Duodenal ulcer, unspecified as acute or chronic, without hemorrhage or perforation; K25.9 Gastric ulcer, unspecified as acute or chronic, without hemorrhage or perforation; K21.9 Gastro-esophageal reflux disease without esophagitis; Z68.38 Body mass index [BMI] 38.0-38.9, adult
CPT/HCPCS: 36415; 74177; 80048; 80053; 80076; 81015; 82150; 83036; 83690; 83735; 84132; 85014; 85018; 85025; 87045; 87046; 87086; 87088; 87493; 88305; 88312; 89055; 93005; 96361; 96374; 99285; C9113; G0378; J1364; J2765; J3010; J7030; Q9967

== ENCOUNTER 2018-01-19 01:48 | Emergency (ER) | payer SELFPAY ==
[2018-01-19] MEDS ORDERED: NA CHLORIDE 0.9% 1,000 ML ONE (03:07)
[2018-01-19 03:18] LABS: Absolute Lymphocytes (CBC) 2.6 K/uL (0.7-4.9); Absolute Monocytes 0.7 K/uL (0.1-1.3); Absolute Neutrophil 3.8 K/uL (1.8-8.0); Basophils % 1.3 % (0-1.3); Eosinophils % 2.6 % (0-4.4); Hematocrit 37.2 % (36.0-45.0); Lymphocytes % 35.3 % (15.3-44.8); MCH 29.6 pg (27.0-35.0); MCV 88.4 fL (80-100); MPV 9.5 fL (7.6-11.3); Monocytes % 8.8 % (3.3-12.3); RBC Red Blood Cell Count 4.21 M/uL (3.86-4.86)
[2018-01-19 03:26] LABS: Urine Blood NEGATIVE (NEG); Urine Glucose NEGATIVE (NEG); Urine Protein NEGATIVE (NEG)
[2018-01-19 03:29] LABS: Protime INR 0.9
[2018-01-19 03:31] LABS: Potassium 3.9 mEq/L (3.6-5.0)
[2018-01-19 03:37] LABS: Albumin 3.6 g/dL (3.2-5.5); Bilirubin Direct 0.1 mg/dL (0-0.2); Bilirubin Total 0.3 mg/dL (0.3-1.2); CKMB Creatine Kinase MB 1.2 ng/ml (0.3-4.0); Magnesium 2.1 mg/dL (1.8-2.5); Protein, Total 6.7 g/dL (6.0-8.3)
--- NOTE | 2018-01-19 04:06 | ER ---
Nurse's Notes [facility] Name: Astrid Gerber Age: 52 yrs Sex: Female : 1965 Arrival Date: 01/19/2018 Time: 01:52 Bed 7 Private MD: Padmini Villalpando H Diagnosis: Syncope and collapse-near Presentation: 01/19 02:18 Presenting complaint: Patient states: she was admitted to the hospital last week for bb syncope and discharged on Wednesday the last couple of nights she is waking up with the same symptoms of feeling faint, sweating, and feeling weak. Transition of care: patient was not received from another setting of care. Onset of symptoms was January 17, 2018. Initial Sepsis Screen: Does the patient meet any 2 criteria? No. Patient's initial sepsis screen is negative. Does the patient have a suspected source of infection? No. Patient's initial sepsis screen is negative. Care prior to arrival: None. 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 - Social history:: Smoking status: Patient/guardian denies using tobacco. Screenin:14 Abuse screen: Denies threats or abuse. Denies injuries from another. Nutritional bp screening: No deficits noted. Tuberculosis screening: No symptoms or risk factors identified. Fall Risk None identified. Assessment: 02:30 General: Appears in no apparent distress. distressed, comfortable, Behavior is calm, bp cooperative, appropriate for age. Pain: Complains of pain in head. Neuro: Level of Consciousness is awake, alert, obeys commands, Oriented to person, place, time, situation, Appropriate for age. Cardiovascular: No deficits noted. Respiratory: Airway is patent Respiratory effort is even, unlabored, Respiratory pattern is regular, symmetrical. GI: Reports nausea. : No signs and/or symptoms were reported regarding the genitourinary system. EENT: No deficits noted. Derm: No deficits noted. Musculoskeletal: Circulation, motion, and sensation intact. Range of motion: intact in all extremities. 03:10 Reassessment: PT TO CT. bp 03:22 Reassessment: PT RETURNED FROM CT. bp 04:32 Reassessment: PT D/C HOME AMBULATORY FROM FAMILY, DX WITH NEAR-SYNCOPE, TO F/U WITH PCP.bp Vital Signs: 02:21 BP 121 / 69; Pulse 72; Resp 18 S; Temp 98.2(O); Pulse Ox 97% on R/A; Weight 102.06 kg bb (R); Height 5 ft. 4 in. (162.56 cm) (R); Pain 4/10; 03:10 BP 114 / 71; Pulse 76; Resp 18; Pulse Ox 97% ; bp 04:04 BP 109 / 74; Pulse 72; Resp 18; Pulse Ox 99% on R/A; mt 02:21 Body Mass Index 38.62 (102.06 kg, 162.56 cm) bb ED Course: 01:52 Patient arrived in ED. do 01:53 Padmini Villalpando DO is Private Physician. do 02:20 Triage completed. bb 02:21 Arm band placed on Patient placed in an exam room, on a stretcher, on pulse oximetry. bb Family accompanied patient. 02:22 Yazan Aranda MD is Attending Physician. antwon 02:28 Chao Mendoza, YANICK is Primary Nurse. bp 02:50 Inserted saline lock: 20 gauge in right antecubital area, using aseptic technique. bp Blood collected. 02:51 X-ray completed. Portable x-ray completed in exam room. Patient tolerated procedure kw well. 02:52 XRAY Chest (1 view) In Process Unspecified. EDMS 03:04 Radiology exam delayed due to iv/bloodwork being done. kc3 03:14 CT Head Brain wo Cont In Process Unspecified. EDMS 03:14 Patient has correct armband on for positive identification. Bed in low position. Call bp light in reach. Side rails up X2. Adult w/ patient. 04:04 Padmini Villalpando DO is Referral Physician. antwon 04:33 No provider procedures requiring assistance completed. IV discontinued, intact, bp bleeding controlled, No redness/swelling at site. Pressure dressing applied. Administered Medications: 03:00 Drug: NS 0.9% 1000 ml Route: IV; Rate: 1 bolus; Site: right antecubital; bp 04:33 Follow up: IV Status: Completed infusion; IV Intake: 1000ml bp Intake: 04:33 IV: 1000ml; Total: 1000ml. bp Outcome: 04:05 Discharge ordered by . antwon 04:34 Discharged to home ambulatory, with family. bp 04:34 Condition: stable 04:34 Discharge instructions given to patient, Instructed on discharge instructions, follow up and referral plans. Demonstrated understanding of instructions, follow-up care. 04:35 Patient left the ED. bp Signatures: Dispatcher [employer] EDMS Yazan Aranda MD MD cha Ballard, Brenda, RN RN Veronica Al Danielle do [place] Chao Amaral, RN RN Angeline Goldstein [email or web address]
--- NOTE | 2018-01-19 04:06 | EDPHYS ---
Physician Documentation [facility] Name: Astrid Gerber Age: 52 yrs Sex: Female : 1965 Arrival Date: 01/19/2018 Time: 01:52 Bed 7 Private MD: Padmini Villalpando H ED Physician Yazan Aranda HPI: 01/19 02:28 This 52 yrs old Female presents to ER via Ambulatory with complaints of antwon Weakness, Dizziness, Headache, Nausea. 02:28 This 52 yrs old Female presents to ER via Ambulatory with complaints of antwon Weakness, Dizziness, Headache, Nausea. 02:28 The patient presents to the emergency department with weakness of the. 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 - Social history:: Smoking status: Patient/guardian denies using tobacco. ROS: 02:29 Constitutional: Negative for fever, chills, and weight loss, Eyes: Negative for injury, antwon pain, redness, and discharge, ENT: Negative for injury, pain, and discharge, Neck: Negative for injury, pain, and swelling, Cardiovascular: Negative for chest pain, palpitations, and edema, Respiratory: Negative for shortness of breath, cough, wheezing, and pleuritic chest pain, Abdomen/GI: Negative for abdominal pain, nausea, vomiting, diarrhea, and constipation, Back: Negative for injury and pain, : Negative for injury, bleeding, discharge, and swelling, MS/Extremity: Negative for injury and deformity, Skin: Negative for injury, rash, and discoloration, Psych: Negative for depression, anxiety, suicide ideation, homicidal ideation, and hallucinations, Allergy/Immunology: Negative for hives, rash, and allergies, Endocrine: Negative for neck swelling, polydipsia, polyuria, polyphagia, and marked weight changes, Hematologic/Lymphatic: Negative for swollen nodes, abnormal bleeding, and unusual bruising. 02:29 Neuro: Positive for headache. Exam: 02:29 Constitutional: This is a well developed, well nourished patient who is awake, alert, antwon and in no acute distress. Head/Face: Normocephalic, atraumatic. Eyes: Pupils equal round and reactive to light, extra-ocular motions intact. Lids and lashes normal. Conjunctiva and sclera are non-icteric and not injected. Cornea within normal limits. Periorbital areas with no swelling, redness, or edema. ENT: Nares patent. No nasal discharge, no septal abnormalities noted. Tympanic membranes are normal and external auditory canals are clear. Oropharynx with no redness, swelling, or masses, exudates, or evidence of obstruction, uvula midline. Mucous membranes moist. Neck: Trachea midline, no thyromegaly or masses palpated, and no cervical lymphadenopathy. Supple, full range of motion without nuchal rigidity, or vertebral point tenderness. No Meningismus. Chest/axilla: Normal chest wall appearance and motion. Nontender with no deformity. No lesions are appreciated. Cardiovascular: Regular rate and rhythm with a normal S1 and S2. No gallops, murmurs, or rubs. Normal PMI, no JVD. No pulse deficits. Respiratory: Lungs have equal breath sounds bilaterally, clear to auscultation and percussion. No rales, rhonchi or wheezes noted. No increased work of breathing, no retractions or nasal flaring. Abdomen/GI: Soft, non-tender, with normal bowel sounds. No distension or tympany. No guarding or rebound. No evidence of tenderness throughout. Back: No spinal tenderness. No costovertebral tenderness. Full range of motion. Pelvic Exam: Normal external genitalia. Speculum exam with closed cervical os, no discharge or bleeding noted. Bimanual exam with normal adnexa, no adnexal or cervical motion tenderness. Normal uterus. Female : Normal external genitalia. Skin: Warm, dry with normal turgor. Normal color with no rashes, no lesions, and no evidence of cellulitis. MS/ Extremity: Pulses equal, no cyanosis. Neurovascular intact. Full, normal range of motion. Psych: Awake, alert, with orientation to person, place and time. Behavior, mood, and affect are within normal limits. 02:29 Neuro: Orientation: is normal, appropriate for stated age, no acute changes, Mentation: is normal, appropriate for stated age, no acute changes, Memory: is normal, appropriate for stated age, Cranial nerves: grossly normal, is grossly normal based on the patient's age, no acute changes, Cerebellar function: is grossly normal, is grossly normal based on the patient's age, no acute changes, Motor: is normal, is grossly normal based on the patient's age, Sensation: no obvious gross deficits, appropriate no acute changes, Gait: seizure activity, is not displayed by the patient. Vital Signs: 02:21 BP 121 / 69; Pulse 72; Resp 18 S; Temp 98.2(O); Pulse Ox 97% on R/A; Weight 102.06 kg bb (R); Height 5 ft. 4 in. (162.56 cm) (R); Pain 4/10; 03:10 BP 114 / 71; Pulse 76; Resp 18; Pulse Ox 97% ; bp 04:04 BP 109 / 74; Pulse 72; Resp 18; Pulse Ox 99% on R/A; mt 02:21 Body Mass Index 38.62 (102.06 kg, 162.56 cm) MDM: 02:30 Data reviewed: vital signs, nurses notes, lab test result(s), EKG, radiologic studies, [facility] CT scan, plain films. 02:34 Patient medically screened. [facility] 01/19 02:27 Order name: Basic Metabolic Panel; Complete Time: 04:02 [facility] 01/19 02:27 Order name: BNP; Complete Time: 04:02 [facility] 01/19 02:27 Order name: CBC with Diff 01/19 02:27 Order name: Ckmb; Complete Time: 04:02 [facility] 01/19 02:27 Order name: CPK; Complete Time: 04:02 [facility] 01/19 02:27 Order name: LFT's; Complete Time: 04:02 [facility] 01/19 02:28 Order name: Magnesium; Complete Time: 04:02 [facility] 01/19 02:28 Order name: PT-INR; Complete Time: 04:02 [facility] 01/19 02:28 Order name: Ptt, Activated; Complete Time: 04:02 [facility] 01/19 02:28 Order name: Troponin (emerg Dept Use Only); Complete Time: 04:02 [facility] 01/19 02:28 Order name: Lipase; Complete Time: 04:02 [facility] 01/19 02:28 Order name: Urine Culture [facility] 01/19 03:09 Order name: Urine Dipstick--Ancillary (enter results); Complete Time: 04:02 em1 01/19 04:12 Order name: CBC Smear Scan [facility] 01/19 02:28 Order name: XRAY Chest (1 view) [facility] 01/19 02:28 Order name: EKG; Complete Time: 02:28 [facility] 01/19 02:28 Order name: Cardiac monitoring; Complete Time: 02:50 [facility] 01/19 02:28 Order name: EKG - Nurse/Tech; Complete Time: 02:50 [facility] 01/19 02:28 Order name: IV Saline Lock; Complete Time: 02:52 [facility] 01/19 02:28 Order name: Labs collected and sent; Complete Time: 02:52 [facility] 01/19 02:28 Order name: O2 Per Protocol; Complete Time: 02:50 [facility] 01/19 02:28 Order name: O2 Sat Monitoring; Complete Time: 02:51 [facility] 01/19 02:28 Order name: Urine Dipstick-Ancillary (obtain specimen); Complete Time: 03:07 [facility] 01/19 02:28 Order name: CT Head Brain wo Cont [facility] Administered Medications: 03:00 Drug: NS 0.9% 1000 ml Route: IV; Rate: 1 bolus; Site: right antecubital; bp 04:33 Follow up: IV Status: Completed infusion; IV Intake: 1000ml bp Disposition: 01/19/18 04:05 Discharged to Home. Impression: Syncope and collapse - near. - Condition is Stable. - Discharge Instructions: Weakness, Near-Syncope, [id number], Syncope, [id number], Weakness, [id number]. - Medication Reconciliation Form, Thank You Letter, Antibiotic Education, Prescription Opioid Use form. - Follow up: Padmini Villalpando DO; When: Today; Reason: Recheck today's complaints, Continuance of care, Re-evaluation by your physician. - Problem is new. - Symptoms have improved. Signatures: Dispatcher [employer] EDYazan Campbell MD MD cha Ballard, Brenda, RN RN bb Chao Mendoza, RN RN bp
[2018-01-19 04:12] LABS: Blood Morphology Comment NOT SEEN (NOT SEEN); Platelet Estimate ADEQ; Urine White Blood Cell Casts OK
[2018-01-19 04:48] VITALS: TEMP 98.2
[2018-01-19 04:50] VITALS: BP 109/74; O2SAT 99
--- NOTE | 2018-01-19 07:27 | EKG ---
Test Date: 2018-01-19 Test Time: 02:45:29 [employer] Care Worker: SANDRA MEASUREMENT RESULTS: Intervals: Rate: 73 [place]: 154 QRSD: 84 QT: 366 QTc: 403 [place]: P: 14 [place]: 154 QRS: 66 T: 27 INTERPRETIVE STATEMENTS: Normal sinus rhythm Normal ECG Compared to ECG 01/08/2018 12:45:09 No significant changes Electronically Signed On 01-19-18 07:26:21 CDT by Michael Cade
--- NOTE | 2018-01-19 08:59 | RAD REPORT ---
EXAM DESCRIPTION: RAD - Chest Single View - 01/19/2018 3:00 am CLINICAL HISTORY: Hypertension COMPARISON: 11/30/2016 FINDINGS: Portable technique limits examination quality. The lungs are grossly clear. The heart is upper limit of normal in size. No displaced fractures. IMPRESSION: No acute intrathoracic process suspected.
--- NOTE | 2018-01-19 09:00 | RAD REPORT ---
EXAM DESCRIPTION: CT - Head Brain Wo Cont - 01/19/2018 4:26 am CLINICAL HISTORY: Syncope COMPARISON: 07/05/2013 TECHNIQUE: All CT scans are performed using dose optimization technique as appropriate and may inclu de automated exposure control or mA/KV adjustment according to patient size. FINDINGS: No intracranial hemorrhage, hydrocephalus or extra-axial fluid collection.No areas of brai n edema or evidence of midline shift. The paranasal sinuses and mastoids are clear. The calvarium is intact. IMPRESSION: No acute intracranial abnormality.
== END 2018-01-19 04:35 | disposition home or self-care (01) ==
LOC: ER 01:48
DX: R55 Syncope and collapse (principal); R53.1 Weakness; R51 Headache; I10 Essential (primary) hypertension; F41.9 Anxiety disorder, unspecified; Z88.0 Allergy status to penicillin
CPT/HCPCS: 36415; 70450; 71045; 80048; 80076; 81003; 82550; 82553; 83690; 83735; 83880; 84484; 85025; 85610; 85730; 87086; 87088; 93005; 96360; 96361; 99284; J7030

== ENCOUNTER 2019-09-02 13:18 | Emergency (ER) | payer SELFPAY ==
[2019-09-02] MEDS ORDERED: ALBUTEROL 2.5 MG/3 ML NEB SOL ONE (14:02)
[2019-09-02] MEDS ORDERED: dexAMETHasone 10 MG/ML VIAL ONE (14:02)
[2019-09-02] MEDS ORDERED: IPRATROPIUM BROM 0.5MG/2.5ML ONE (14:03)
--- NOTE | 2019-09-02 15:26 | RAD REPORT ---
EXAM DESCRIPTION: Jennifer Gray (2 Views)09/02/2019 3:03 pm CLINICAL HISTORY: Cough COMPARISON: 2018 FINDINGS: The lungs appear clear of acute infiltrate. The heart is normal size IMPRESSION: No acute abnormalities displayed
--- NOTE | 2019-09-02 15:31 | EDPHYS ---
Physician Documentation [facility] Name: Astrid Gerber Age: 53 yrs Sex: Female : 1965 Arrival Date: 09/02/2019 Time: 13:19 Bed 8 Private MD: ED Physician Steve Meadows HPI: 09/02 15:06 This 53 yrs old Female presents to ER via Ambulatory with complaints of nh Bronchitis. 15:06 Onset: The symptoms/episode began/occurred 1.5 week(s) ago. Associated signs and nh symptoms: Pertinent positives: cough, wheezing. Modifying factors: The patient symptoms are alleviated by nothing, the patient symptoms are aggravated by exercising. The patient has not experienced similar symptoms in the past. The patient has not recently seen a physician. Historical: - Allergies: 13:47 PENICILLINS; ss - Home Meds: 13:47 Bumex Oral daily [Active]; omeprazole 20 mg Oral cpDR 1 cap 2 times per day [Active]; ss - PMHx: 13:47 Anxiety; Hypertension; ss - PSHx: 13:47 ; Hysterectomy; ss - Immunization history:: Adult Immunizations up to date. - Social history:: Smoking status: Patient/guardian denies using tobacco. - Ebola Screening: : Patient denies exposure to infectious person Patient denies travel to an Ebola-affected area in the 21 days before illness onset. ROS: 15:06 Constitutional: Negative for fever, chills, and weight loss, Eyes: Negative for injury, nh pain, redness, and discharge, ENT: Negative for injury, pain, and discharge, Neck: Negative for injury, pain, and swelling, Cardiovascular: Negative for chest pain, palpitations, and edema, Abdomen/GI: Negative for abdominal pain, nausea, vomiting, diarrhea, and constipation, Back: Negative for injury and pain, : Negative for injury, bleeding, discharge, and swelling, MS/Extremity: Negative for injury and deformity, Skin: Negative for injury, rash, and discoloration, Neuro: Negative for headache, weakness, numbness, tingling, and seizure, Psych: Negative for depression, anxiety, suicide ideation, homicidal ideation, and hallucinations, Allergy/Immunology: Negative for hives, rash, and allergies, Endocrine: Negative for neck swelling, polydipsia, polyuria, polyphagia, and marked weight changes. 15:06 Respiratory: Positive for cough, with no reported sputum, wheezing. Exam: 15:06 Constitutional: This is a well developed, well nourished patient who is awake, alert, nh and in no acute distress. Head/Face: Normocephalic, atraumatic. Eyes: Pupils equal round and reactive to light, extra-ocular motions intact. Lids and lashes normal. Conjunctiva and sclera are non-icteric and not injected. Cornea within normal limits. Periorbital areas with no swelling, redness, or edema. ENT: Nares patent. No nasal discharge, no septal abnormalities noted. Tympanic membranes are normal and external auditory canals are clear. Oropharynx with no redness, swelling, or masses, exudates, or evidence of obstruction, uvula midline. Mucous membranes moist. Neck: Trachea midline, no thyromegaly or masses palpated, and no cervical lymphadenopathy. Supple, full range of motion without nuchal rigidity, or vertebral point tenderness. No Meningismus. Chest/axilla: Normal chest wall appearance and motion. Nontender with no deformity. No lesions are appreciated. Cardiovascular: Regular rate and rhythm with a normal S1 and S2. No gallops, murmurs, or rubs. Normal PMI, no JVD. No pulse deficits. Abdomen/GI: Soft, non-tender, with normal bowel sounds. No distension or tympany. No guarding or rebound. No evidence of tenderness throughout. Back: No spinal tenderness. No costovertebral tenderness. Full range of motion. Skin: Warm, dry with normal turgor. Normal color with no rashes, no lesions, and no evidence of cellulitis. MS/ Extremity: Pulses equal, no cyanosis. Neurovascular intact. Full, normal range of motion. Neuro: Awake and alert, GCS 15, oriented to person, place, time, and situation. Cranial nerves II-XII grossly intact. Motor strength 5/5 in all extremities. Sensory grossly intact. Cerebellar exam normal. Normal gait. 15:06 Respiratory: mild respiratory distress is noted, Respirations: normal, Breath sounds: wheezing: that is mild, is scattered. Vital Signs: 13:43 BP 130 / 85; Pulse 85; Resp 16; Temp 98.9(TE); Pulse Ox 96% on R/A; Weight 104.33 kg; ss Height 5 ft. 4 in. (162.56 cm); Pain 6/10; 16:00 BP 128 / 79; Pulse 87; Resp 17; Temp 98.9; Pulse Ox 97% ; bp 13:43 Body Mass Index 39.48 (104.33 kg, 162.56 cm) ss MDM: 13:50 Patient medically screened. nh 15:30 Data reviewed: vital signs, nurses notes, lab test result(s), radiologic studies, I nh have discussed the patient's presentation/case with the attending Emergency Department Physician; and as a result, I will discharge patient. Counseling: I had a detailed discussion with the patient and/or guardian regarding: the historical points, exam findings, and any diagnostic results supporting the discharge/admit diagnosis, lab results, radiology results, the need for outpatient follow up, to return to the emergency department if symptoms worsen or persist or if there are any questions or concerns that arise at home. 09/02 13:55 Order name: Chest Pa And Lat (2 Views) XRAY; Complete Time: 15:30 nh Administered Medications: 14:00 Drug: Albuterol - atroVENT (3:1) (2.5 mg - 0.5 mg) 3 ml Route: Nebulizer; bp 16:12 Follow up: Response: No adverse reaction bp 14:00 Drug: Dexamethasone 10 mg Route: IM; Site: right deltoid; bp 16:12 Follow up: Response: No adverse reaction bp Disposition: 16:20 Co-signature as Attending Physician, Steve Meadows MD. rn Disposition: 09/02/19 15:31 Discharged to Home. Impression: Bronchitis, not specified as acute or chronic. - Condition is Stable. - Discharge Instructions: Upper Respiratory Infection, Adult. - Prescriptions for Albuterol Sulfate 2.5 mg /3 mL (0.083 %) Inhalation Solution for Nebulization - inhale 1 unit by NEBULIZATION route every 8 hours As needed; 1 box. Medrol (Tung) 4 mg Oral Tablets, Dose Pack - take 1 tablet by ORAL route as directed - follow package instructions; 1 packet. promethazine- DM - take 5 milliliter by ORAL route every 4 hours As needed; 100 milliliter. - Medication Reconciliation Form, Thank You Letter, Antibiotic Education, Prescription Opioid Use form. - Follow up: Private Physician; When: 2 - 3 days; Reason: Recheck today's complaints. - Problem is new. - Symptoms are unchanged. Signatures: Dispatcher [employer] EDMS Thalia Cooper, COST CONTROL SUPERVISOR COST CONTROL SUPERVISOR ne Steve Meadows MD MD rn Smirch, Shelby, RN RN ss Peltier, Brian, RN RN bp Corrections: (The following items were deleted from the chart) 16:12 15:31 09/02/2019 15:31 Discharged to Home. Impression: Bronchitis, not specified as bp acute or chronic. Condition is Stable. Forms are Medication Reconciliation Form, Thank You Letter, Antibiotic Education, Prescription Opioid Use. Follow up: Private Physician; When: 2 - 3 days; Reason: Recheck today's complaints. Problem is new. Symptoms are unchanged. nh
--- NOTE | 2019-09-02 15:31 | ER ---
Nurse's Notes [facility] Name: Astrid Gerber Age: 53 yrs Sex: Female : 1965 Arrival Date: 09/02/2019 Time: 13:19 Bed 8 Private MD: Diagnosis: Bronchitis, not specified as acute or chronic Presentation: 09/02 13:44 Presenting complaint: Patient states: Productive cough and nasal congestion x 3 weeks. ss Pt reports she was put on a Z-Tung which seemed to help, but now she is getting worse again. Cough is now painful. Pt states, "I'm pretty sure I have bronchitis.". Transition of care: patient was not received from another setting of care. Onset of symptoms was August 12, 2019. Risk Assessment: Do you want to hurt yourself or someone else? Patient reports no desire to harm self or others. Initial Sepsis Screen: Does the patient meet any 2 criteria? No. Patient's initial sepsis screen is negative. Does the patient have a suspected source of infection? Yes: Productive cough/pneumonia. Care prior to arrival: None. 13:44 Method Of Arrival: Ambulatory 13:44 Acuity: JENA 3 Triage Assessment: 13:49 General: Appears in no apparent distress. comfortable, obese, Behavior is cooperative, bp appropriate for age, anxious. Pain: Denies pain. EENT: Reports nasal congestion. Neuro: No deficits noted. Cardiovascular: No deficits noted. Respiratory: Reports cough that is. GI: No signs and/or symptoms were reported involving the gastrointestinal system. : No signs and/or symptoms were reported regarding the genitourinary system. Derm: No deficits noted. Musculoskeletal: No deficits noted. Historical: - Allergies: 13:47 PENICILLINS; ss - Home Meds: 13:47 Bumex Oral daily [Active]; omeprazole 20 mg Oral cpDR 1 cap 2 times per day [Active]; ss - PMHx: 13:47 Anxiety; Hypertension; ss - PSHx: 13:47 ; Hysterectomy; ss - Immunization history:: Adult Immunizations up to date. - Social history:: Smoking status: Patient/guardian denies using tobacco. - Ebola Screening: : Patient denies exposure to infectious person Patient denies travel to an Ebola-affected area in the 21 days before illness onset. Screenin:50 Abuse screen: Denies threats or abuse. Denies injuries from another. Nutritional bp screening: No deficits noted. Tuberculosis screening: No symptoms or risk factors identified. Fall Risk None identified. Assessment: 13:50 General: SEE TRIAGE NOTE. bp 16:10 Reassessment: PT D/C HOME AMBULATORY WITH FAMILY, DX WITH BRONCHITIS. bp Vital Signs: 13:43 BP 130 / 85; Pulse 85; Resp 16; Temp 98.9(TE); Pulse Ox 96% on R/A; Weight 104.33 kg; ss Height 5 ft. 4 in. (162.56 cm); Pain 6/10; 16:00 BP 128 / 79; Pulse 87; Resp 17; Temp 98.9; Pulse Ox 97% ; bp 13:43 Body Mass Index 39.48 (104.33 kg, 162.56 cm) ss ED Course: 13:19 Patient arrived in ED. as 13:46 Triage completed. ss 13:47 Arm band placed on right wrist. ss 13:49 Chao Mendoza, YANICK is Primary Nurse. bp 13:50 Thalia Cooper FNP is PHCP. nh 13:50 Steve Meadows MD is Attending Physician. nh 13:50 Patient has correct armband on for positive identification. Bed in low position. Call bp light in reach. Side rails up X2. Adult w/ patient. 15:04 Chest Pa And Lat (2 Views) XRAY In Process Unspecified. EDMS 16:11 No provider procedures requiring assistance completed. Patient did not have IV access bp during this emergency room visit. Administered Medications: 14:00 Drug: Albuterol - atroVENT (3:1) (2.5 mg - 0.5 mg) 3 ml Route: Nebulizer; bp 16:12 Follow up: Response: No adverse reaction bp 14:00 Drug: Dexamethasone 10 mg Route: IM; Site: right deltoid; bp 16:12 Follow up: Response: No adverse reaction bp Outcome: 15:31 Discharge ordered by . nh 16:11 Discharged to home ambulatory, with family. bp 16:11 Condition: stable 16:11 Discharge instructions given to patient, Instructed on discharge instructions, follow up and referral plans. medication usage, Demonstrated understanding of instructions, follow-up care, medications, Prescriptions given X 3. 16:12 Patient left the ED. bp Signatures: Dispatcher [facility] Thalia Viramontes, DETECTOR CAR OPERATOR DETECTOR CAR OPERATOR Roshni Jacobson Shelby, RN RN ss Chao Mendoza, RN RN bp
[2019-09-02 17:35] VITALS: TEMP 98.9
[2019-09-02 17:36] VITALS: BP 128/79; O2SAT 97
== END 2019-09-02 16:12 | disposition home or self-care (01) ==
LOC: ER 13:18
DX: J40 Bronchitis, not specified as acute or chronic (principal); I10 Essential (primary) hypertension; F41.9 Anxiety disorder, unspecified; Z88.0 Allergy status to penicillin
CPT/HCPCS: 71046; 94640; 96372; 99284; J1100

== ENCOUNTER 2023-04-13 12:17 | Emergency (ER) | payer SELFPAY ==
[2023-04-13] MEDS ORDERED: NA CHLORIDE 0.9% 1,000 ML ONE (12:42)
[2023-04-13] MEDS ORDERED: KETOROLAC 30 MG/ML INJ ONE (12:42)
[2023-04-13 13:07] LABS: Absolute Lymphocytes (CBC) 2.2 K/uL (0.7-4.9); Hematocrit 41.7 % (36.0-45.0); Lymphocytes % 28.7 % (15.3-44.8); MCV 90.5 fL (80-100); MPV 9.5 fL (7.6-11.3); RBC Red Blood Cell Count 4.62 M/uL (3.86-4.86)
[2023-04-13 13:15] LABS: Specific Gravity 1.006 (1.005-1.030); Urine Bilirubin NEGATIVE (Negative); Urine Blood Negative (Negative); Urine Clarity Clear (Clear); Urine Color Colorless (Yellow); Urine Glucose NEGATIVE (Negative); Urine Protein NEGATIVE (Negative); Urine Urobilinogen Normal (Normal); Urine pH 6.5 (5.0-7.0)
--- NOTE | 2023-04-13 13:26 | RAD REPORT ---
EXAM DESCRIPTION: RAD - Chest Pa And Lat (2 Views) - 04/13/2023 12:45 pm CLINICAL HISTORY: COUGH COMPARISON: Chest Pa And Lat (2 Views) dated 09/02/2019; Chest Single View dated 01/19/2018; Chest Pa And Lat (2 Views) dated 11/30/2016; CHEST SINGLE VIEW dated 05/03/2014 TECHNIQUE: PA and lateral views of the chest were obtained. FINDINGS: The lungs are clear. Heart size is normal and central vasculature is within normal limits. No pleural effusion or pneumothorax seen. No acute bony finding noted. IMPRESSION: No acute cardiopulmonary process.
[2023-04-13 13:32] LABS: Albumin 3.9 g/dL (3.4-5.0); Bilirubin Total 0.3 mg/dL (0.2-1.0); Protein, Total 8.1 g/dL (6.4-8.2)
[2023-04-13 13:33] LABS: Potassium 3.6 mEq/L (3.5-5.1)
--- NOTE | 2023-04-13 14:12 | ER ---
Nurse's Notes [facility] Name: Astrid Gerber Age: 57 yrs Sex: Female : 1965 Arrival Date: 04/13/2023 Time: 12:17 Bed 11 Private MD: Diagnosis: Acute bronchitis, unspecified Presentation: 04/13 12:22 Chief complaint: Patient states: she has been having pain in the right side of her ap3 chest for approx 4 days, and it is not getting better. patient reports that if she moves a certain way "it takes my breath away". Patient also reports cough. Coronavirus screen: Client presents with at least one sign or symptom that may indicate coronavirus-19. Ebola Screen: No symptoms or risks identified at this time. Initial Sepsis Screen: Does the patient meet any 2 criteria? No. Patient's initial sepsis screen is negative. Does the patient have a suspected source of infection? No. Patient's initial sepsis screen is negative. Risk Assessment: Do you want to hurt yourself or someone else? Patient reports no desire to harm self or others. Onset of symptoms was April 09, 2023. 12:22 Method Of Arrival: Ambulatory ap3 12:22 Acuity: JENA 3 ap3 Triage Assessment: 12:26 General: Appears uncomfortable, Behavior is calm, cooperative. Pain: Complains of pain ap3 in mid back area Pain currently is 7 out of 10 on a pain scale. Pain began gradually. Neuro: Level of Consciousness is awake, alert, obeys commands, Oriented to person, place, time, situation. Cardiovascular: Patient's skin is warm and dry. Respiratory: Reports shortness of breath pain with movement Airway is patent Respiratory effort is even, unlabored, Respiratory pattern is regular, symmetrical. Historical: - Allergies: 12:23 PENICILLINS; ap3 - PMHx: 12:23 Hypertension; ap3 - Immunization history:: Client reports receiving the 2nd dose of the Covid vaccine. - Social history:: Smoking status: Patient reports the use of cigarette tobacco products, denies chronic smoking, but will smoke occasionally. Screenin:27 [facility] ED Fall Risk Assessment (Adult) History of falling in the last 3 months, ap3 including since admission No falls in past 3 months (0 pts). Abuse screen: Denies threats or abuse. Nutritional screening: No deficits noted. Tuberculosis screening: No symptoms or risk factors identified. Assessment: 14:27 Reassessment: No changes from previously documented assessment. Patient is alert, cm10 oriented x 3, equal unlabored respirations, skin warm/dry/pink. Patient states feeling better. Patient states symptoms have improved. Vital Signs: 12:22 Pulse 94; Resp 17; Temp 98.1; Pulse Ox 100% ; Weight 99.79 kg; Height 5 ft. 4 in. ; ap3 Pain 7/10; 14:26 BP 165 / 97; Pulse 84; Resp 18; Pulse Ox 99% ; Pain 3/10; cm10 12:22 Body Mass Index 37.76 (99.79 kg, 162.56 cm) ap3 12:22 Pain Scale: Adult ap3 14:26 Pain Scale: Adult cm10 ED Course: 12:19 Patient arrived in ED. rg4 12:23 Ovidio Estveez MD is Attending Physician. jr11 12:23 Triage completed. ap3 12:27 Arm band placed on right wrist. ap3 12:33 Nicolasa Pineda, YANICK is Primary Nurse. cm10 12:47 Chest Pa And Lat (2 Views) XRAY In Process Unspecified. EDMS 12:59 Missed attempt(s): 20 gauge in right antecubital area. Bleeding controlled, band aid cm10 applied, catheter tip intact. 13:00 Influenza Screen (a \\T\\ B) Sent. cm10 13:00 COVID-19 SARS RT PCR Sent. cm10 13:00 CBC with Diff Sent. cm10 13:00 CMP Sent. cm10 13:00 Urinalysis w/ reflexes Sent. cm10 14:27 Patient has correct armband on for positive identification. Bed in low position. Call cm10 light in reach. Provided Education on: N/A. 14:27 No provider procedures requiring assistance completed. Patient did not have IV access cm10 during this emergency room visit. intact, bleeding controlled, No redness/swelling at site. Pressure dressing applied. Administered Medications: 13:00 Not Given (Patient Refused): NS 0.9% IV 1000 ml IV at 1 bolus Per protocol; 1000 mL cm10 bolus 13:07 Not Given (Patient Refused): TORadol - Ketorolac IVP 15 mg IVP once cm10 13:07 Drug: Ketorolac IM 30 mg Route: IM; Site: right gluteus; cm10 13:52 Follow up: Response: No adverse reaction; Pain is decreased cm10 Medication: 14:27 VIS not applicable for this client. cm10 Outcome: 14:12 Discharge ordered by . ramesh 14:28 Discharged to home ambulatory. cm10 14:28 Condition: good 14:28 Discharge instructions given to patient, Instructed on discharge instructions, follow up and referral plans. medication usage, Demonstrated understanding of instructions, follow-up care, medications, Prescriptions given X 3. 14:28 Patient left the ED. cm10 Signatures: Dispatcher [employer] Zaina Hudson rg4 Melisa Pink RN RN [email or web address] Ovidio Estevez MD MD jr11 Nicolasa Pineda RN RN cm10 Corrections: (The following items were deleted from the chart) 12:26 12:23 PMHx: Anxiety; ap3 ap3
--- NOTE | 2023-04-13 14:12 | EDPHYS ---
Physician Documentation [facility] Name: Astrid Gerber Age: 57 yrs Sex: Female : 1965 Arrival Date: 04/13/2023 Time: 12:17 Bed 11 Private MD: ED Physician Ovidio Estevez HPI: 04/13 12:43 Patient is a 57-year-old female that about 4 days ago [place], jr11 paddling, complaining of pain across the lateral aspects of her lower thorax, cough, worse at night. Runny nose congestion for the last 2 to 3 days. Denies any exertional chest pain. Denies exertional pain, no tearing pain, does not radiate to the back, does not cross the diaphragm. No diaphoresis, no vomiting. No syncope or near-syncope. . Historical: - Allergies: 12:23 PENICILLINS; ap3 - PMHx: 12:23 Hypertension; ap3 - Immunization history:: Client reports receiving the 2nd dose of the Covid vaccine. - Social history:: Smoking status: Patient reports the use of cigarette tobacco products, denies chronic smoking, but will smoke occasionally. ROS: 12:43 All other systems are negative. jr11 Exam: 12:43 Constitutional: This is a well developed, well nourished patient who is awake, alert, jr11 and in no acute distress. Head/Face: Normocephalic, atraumatic. Eyes: Extra-ocular motions intact. Lids and lashes normal. Conjunctiva and sclera are non-icteric and not injected. Cornea within normal limits. Periorbital areas with no swelling, redness, or edema. ENT: BOGGY NASAL MUCOSA Chest/axilla: Normal chest wall appearance and motion. Nontender with no deformity. No lesions are appreciated. Cardiovascular: Regular rate and rhythm with a normal S1 and S2. No gallops, murmurs, or rubs. Normal PMI, no JVD. No pulse deficits. Respiratory: Lungs have equal breath sounds bilaterally, clear to auscultation and percussion. No rales, rhonchi or wheezes noted. No increased work of breathing, no retractions or nasal flaring. Abdomen/GI: Soft, non-tender, with normal bowel sounds. No distension or tympany. No guarding or rebound. No evidence of tenderness throughout. Back: No spinal tenderness. No costovertebral tenderness. Full range of motion. MS/ Extremity: Pulses equal, no cyanosis. Neurovascular intact. Full, normal range of motion. Vital Signs: 12:22 Pulse 94; Resp 17; Temp 98.1; Pulse Ox 100% ; Weight 99.79 kg; Height 5 ft. 4 in. ; ap3 Pain 7/10; 14:26 BP 165 / 97; Pulse 84; Resp 18; Pulse Ox 99% ; Pain 3/10; cm10 12:22 Body Mass Index 37.76 (99.79 kg, 162.56 cm) ap3 12:22 Pain Scale: Adult ap3 14:26 Pain Scale: Adult cm10 MDM: 12:27 Patient medically screened. jr11 12:43 Differential diagnosis: UTI, strain strain PNA. Data reviewed: vital signs, nurses jr11 notes. 14:11 ED course: Chest x-ray interpreted by me shows no pneumonia, given increasing shortness jr11 of breath with exertion, will treat with azithromycin for atypical pneumonia, bronchitis. ER warnings given all results explained. Patient feeling better.. ED course: No history of blood clots, not having severe chest pain, no concern for PE at this time. Patient comfortable with plan of care.. 04/13 12:28 Order name: CBC with Diff; Complete Time: 13:[address] [facility] 04/13 12:28 Order name: CMP; Complete Time: 13:40 04/13 12:28 Order name: Lipase; Complete Time: 13:[address] [facility] 04/13 12:28 Order name: Urinalysis w/ reflexes; Complete Time: 13:19 04/13 12:29 Order name: COVID-19 SARS RT PCR; Complete Time: 13:40 04/13 12:29 Order name: Influenza Screen (a \T\ B); Complete Time: 14:10 04/13 12:28 Order name: Chest Pa And Lat (2 Views) XRAY; Complete Time: 13:40 04/13 12:28 Order name: Labs collected and sent; Complete Time: 13:00 Administered Medications: 13:00 Not Given (Patient Refused): NS 0.9% IV 1000 ml IV at 1 bolus Per protocol; 1000 mL cm10 bolus 13:07 Not Given (Patient Refused): TORadol - Ketorolac IVP 15 mg IVP once cm10 13:07 Drug: Ketorolac IM 30 mg Route: IM; Site: right gluteus; cm10 13:52 Follow up: Response: No adverse reaction; Pain is decreased cm10 Disposition Summary: 04/13/23 14:12 Discharge Ordered Location: Home jr11 Condition: Stable jr11 Diagnosis - Acute bronchitis, unspecified jr11 Discharge Instructions: - Discharge Summary Sheet jr11 - Acute Bronchitis, Adult jr11 Forms: - Medication Reconciliation Form jr11 - Thank You Letter jr11 - Antibiotic Education jr11 - Prescription Opioid Use jr11 - Patient Portal [email or web address].htm jr11 Prescriptions: - Ibuprofen 600 mg Oral Tablet - take 1 tablet by ORAL route every 6 hours As needed take with food; 30 tablet; jr11 Refills: 0, Product Selection Permitted - Tessalon Perles 100 mg Oral Capsule - take 1 capsule by ORAL route every 8 hours As needed; 15 capsule; Refills: 0, jr11 Product Selection Permitted - Zithromax Z-Tung 250 mg Oral Tablet - take 1 tablet by ORAL route as directed for 5 days Day 1 - take two (2) tablets jr11 one time. Day 2, 3, 4 , 5 take one (1) tablet once daily.; 6 tablet; Refills: 0, Product Selection Permitted Signatures: Dispatcher [employer] Melisa May RN RN ap3 Ovidio Estevez MD MD jr11 Nicolasa Pineda RN RN cm10 Corrections: (The following items were deleted from the chart) 12:26 12:23 PMHx: Anxiety; ap3 ap3
[2023-04-13 15:24] VITALS: TEMP 98.1
[2023-04-13 15:28] VITALS: BP 165/97; O2SAT 99
== END 2023-04-13 14:28 | disposition home or self-care (01) ==
LOC: ER 12:17
DX: J20.9 Acute bronchitis, unspecified (principal)
CPT/HCPCS: 36415; 71046; 80053; 81003; 83690; 85025; 87635; 87804; J7030

== ENCOUNTER → 2023-11-10 | Emergency (ER) | payer OTHER, SELFPAY ==
[~2023-11-10] MED LIST: AZITHROMYCIN 250 MG TAB ONE; IBUPROFEN 400 MG TAB ONE; predniSONE 20 MG TAB ONE
--- NOTE | 2023-11-10 12:50 | RAD REPORT ---
EXAM DESCRIPTION: RAD - Chest Pa And Lat (2 Views) - 11/10/2023 12:33 pm CLINICAL HISTORY: COUGH COMPARISON: 04/13/2023 TECHNIQUE: PA and lateral views of the chest were obtained. FINDINGS: The lungs show no focal consolidation. Streaky parahilar opacities. Heart size is normal a nd central vasculature is within normal limits. No pleural effusion or pneumothorax seen. No acute [place] finding noted. IMPRESSION: Findings suggesting reactive airway changes or viral infection, without evidence of foca l pneumonia.
[2023-11-10 13:12] LABS: SARS-CoV-2 Antigen Rapid Res Negative (Negative)
--- NOTE | 2023-11-10 14:43 | EDPHYS ---
Physician Documentation [facility] Name: Astrid Gerber Age: 57 yrs Sex: Female : 1965 Arrival Date: 11/10/2023 Time: 11:50 Bed 15 Private MD: ED Physician Yazan Aranda HPI: 11/10 14:33 This 57 yrs old Female presents to ER via Ambulatory with complaints of Flu antwon Symptoms. 14:33 The patient or guardian reports cough, described as mild, described as moderate, flu antwon symptoms, arthralgias, low-grade fever, myalgias. Onset: The symptoms/episode began/occurred 3 day(s) ago. Modifying factors: The symptoms are alleviated by changing position, the symptoms are aggravated by activity, cold environment. Associated signs and symptoms: Pertinent positives: rhinorrhea, sore throat. Severity of symptoms: At their worst the symptoms were mild in the emergency department the symptoms are unchanged. The patient has experienced similar episodes in the past, a few times. Historical: - Allergies: 12:03 PENICILLINS; ap3 - PMHx: 12:03 Hypertension; ap3 - PSHx: 12:03 section; hysterectomy; ap3 - Immunization history:: Adult Immunizations up to date. - Social history:: Smoking status: Patient denies any tobacco usage or history of. - Family history:: not pertinent. ROS: 14:33 Constitutional: Negative for fever, chills, and weight loss, Eyes: Negative for injury, antwon pain, redness, and discharge, Neck: Negative for injury, pain, and swelling, Cardiovascular: Negative for chest pain, palpitations, and edema, Abdomen/GI: Negative for abdominal pain, nausea, vomiting, diarrhea, and constipation, Back: Negative for injury and pain, : Negative for injury, bleeding, discharge, and swelling, MS/Extremity: Negative for injury and deformity, Skin: Negative for injury, rash, and discoloration, Neuro: Negative for headache, weakness, numbness, tingling, and seizure, Psych: Negative for depression, anxiety, suicide ideation, homicidal ideation, and hallucinations, Allergy/Immunology: Negative for hives, rash, and allergies, Endocrine: Negative for neck swelling, polydipsia, polyuria, polyphagia, and marked weight changes, Hematologic/Lymphatic: Negative for swollen nodes, abnormal bleeding, and unusual bruising, 14:33 ENT: Positive for rhinorrhea, sinus congestion, sinus pain, sore throat, Exam: 14:33 Constitutional: This is a well developed, well nourished patient who is awake, alert, antwon and in no acute distress. Head/Face: Normocephalic, atraumatic. Eyes: Pupils equal round and reactive to light, extra-ocular motions intact. Lids and lashes normal. Conjunctiva and sclera are non-icteric and not injected. Cornea within normal limits. Periorbital areas with no swelling, redness, or edema. ENT: Nares patent. No nasal discharge, no septal abnormalities noted. Tympanic membranes are normal and external auditory canals are clear. Oropharynx with no redness, swelling, or masses, exudates, or evidence of obstruction, uvula midline. Mucous membranes moist. Neck: Trachea midline, no thyromegaly or masses palpated, and no cervical lymphadenopathy. Supple, full range of motion without nuchal rigidity, or vertebral point tenderness. No Meningismus. Chest/axilla: Normal chest wall appearance and motion. Nontender with no deformity. No lesions are appreciated. Cardiovascular: Regular rate and rhythm with a normal S1 and S2. No gallops, murmurs, or rubs. Normal PMI, no JVD. No pulse deficits. Abdomen/GI: Soft, non-tender, with normal bowel sounds. No distension or tympany. No guarding or rebound. No evidence of tenderness throughout. Back: No spinal tenderness. No costovertebral tenderness. Full range of motion. Skin: Warm, dry with normal turgor. Normal color with no rashes, no lesions, and no evidence of cellulitis. MS/ Extremity: Pulses equal, no cyanosis. Neurovascular intact. Full, normal range of motion. Neuro: Awake and alert, GCS 15, oriented to person, place, time, and situation. Cranial nerves II-XII grossly intact. Motor strength 5/5 in all extremities. Sensory grossly intact. Cerebellar exam normal. Normal gait. Psych: Awake, alert, with orientation to person, place and time. Behavior, mood, and affect are within normal limits. 14:33 Respiratory: mild respiratory distress is noted, Respirations: no acute changes, is not noted, Breath sounds: bronchial sounds, that are mild, decreased breath sounds, are not appreciated, rhonchi, that are mild, are scattered, stridor, is not appreciated, + upper airway congestion. Respiratory rate: 18 14:41 Musculoskeletal/extremity: DVT Exam: No signs of deep vein thrombosis. no pain, no antwon swelling, no tenderness, negative Homans' sign noted on exam, no appreciated bluish discoloration, no erythema, no increased warmth, Vital Signs: 12:04 BP 192 / 108; Pulse 94; Resp 18; Temp 98.1; Pulse Ox 97% ; Weight 108.86 kg; Height 5 ap3 ft. 4 in. ; Pain 8/10; 15:18 BP 160 / 78; Pulse 85; Resp 16; Pulse Ox 100% ; bp 12:04 Body Mass Index 41.20 (108.86 kg, 162.56 cm) ap3 12:04 Pain Scale: Adult ap3 MDM: 12:03 Patient medically screened. [facility] 14:41 Antibiotic administration: The patient is discharged and will get outpatient [facility] antibiotics, Zithromax. Data reviewed: vital signs, nurses notes, lab test result(s), radiologic studies, plain films. Consideration of Admission/Observation Escalation of care including admission/observation considered. I considered the following discharge prescriptions or medication management in the emergency department Medications were administered in the Emergency Department. See MAR. Test considered but Not performed: Labs: NO CBC , NO COMP MET. Care significantly affected by the following chronic conditions: Hypertension, Obesity. 11/10 12:06 Order name: SARS RAPID; Complete Time: 13:59 [facility] 11/10 12:06 Order name: Flu; Complete Time: 13:59 [facility] 11/10 12:06 Order name: Strep [facility] 11/10 13:13 Order name: Throat Culture [facility] 11/10 12:06 Order name: Chest Pa And Lat (2 Views) XRAY; Complete Time: 13:59 antwon Administered Medications: 12:50 Drug: Ibuprofen PO 800 mg PO once Route: PO; bp 15:01 Follow up: Response: No adverse reaction bp 15:01 Drug: AZITHromycin PO 500 mg PO once Route: PO; bp 15:01 Follow up: Response: No adverse reaction bp 15:01 Drug: predniSONE PO 60 mg PO once Route: PO; bp 15:02 Follow up: Response: No adverse reaction bp Disposition Summary: 11/10/23 14:42 Discharge Ordered Notes: Location: Home [facility] Problem: new antwon Symptoms: have improved antwon Condition: Stable [facility] Diagnosis - Cough antwon - Acute upper respiratory infection, unspecified antwon Followup: [facility] - With: Private Physician - When: 2 - 3 days - Reason: Recheck today's complaints, Continuance of care, Re-evaluation by your physician Discharge Instructions: - Discharge Summary Sheet antwon - Upper Respiratory Infection, Adult antwon - Cool Mist Vaporizer antwon - Upper Respiratory Infection, Adult, [id number] antwon - Cough, Adult, [id number] antwon - Cough, Adult [facility] Forms: - Medication Reconciliation Form [facility] - Thank You Letter [facility] - Antibiotic Education antwon - Prescription Opioid Use [facility] - Patient Portal Instructions [facility] - Leadership Thank You Letter [facility] Prescriptions: - Prednisone 20 mg Oral tablet - take 2 tablets ORAL route once daily for 4 days; 8 tablet; Refills: 0, Product [facility] Selection Permitted - Guaifenesin AC 10-100 mg/5 mL Oral liquid - take 7.5 milliliter ORAL route every 6 hours As needed PRN COUGH; 240 antwon milliliter; Refills: 0, Product Selection Permitted - Zithromax 500 mg Oral tablet - take 1 tablet ORAL route once daily for 5 days; 5 tablet; Refills: 0, Product [facility] Selection Permitted Signatures: Dispatcher [employer] Yazan Best MD MD cha Peltier, Brian, RN RN Melisa Trujillo RN RN ap3
--- NOTE | 2023-11-10 14:43 | ER ---
Nurse's Notes [facility] Name: Astrid Gerber Age: 57 yrs Sex: Female : 1965 Arrival Date: 11/10/2023 Time: 11:50 Bed 15 Private MD: Diagnosis: Cough;Acute upper respiratory infection, unspecified Presentation: 11/10 12:04 Coronavirus screen: Vaccine status: Patient reports receiving the 2nd dose of the covid ap3 vaccine. Client denies travel out of the [place] in the last 14 days. Ebola Screen: Patient denies travel to an Ebola-affected area in the 21 days before illness onset. Initial Sepsis Screen: Does the patient meet any 2 criteria? No. Patient's initial sepsis screen is negative. Does the patient have a suspected source of infection? Yes: Productive cough/pneumonia. Risk Assessment: Do you want to hurt yourself or someone else? Patient reports no desire to harm self or others. Onset of symptoms was November 07, 2023. 12:04 Method Of Arrival: Ambulatory ap3 12:04 Acuity: JENA 3 ap3 12:07 Chief complaint: Patient states: Cough, SOB, sore throat, fever, nausea since Wednesday. ll1 Similar symptoms off/on since July 2023. Triage Assessment: 12:05 General: Appears in no apparent distress. uncomfortable, obese, Behavior is calm, bp cooperative, appropriate for age. Pain: Complains of pain in head. Historical: - Allergies: 12:03 PENICILLINS; ap3 - PMHx: 12:03 Hypertension; ap3 - PSHx: 12:03 section; hysterectomy; ap3 - Immunization history:: Adult Immunizations up to date. - Social history:: Smoking status: Patient denies any tobacco usage or history of. - Family history:: not pertinent. Screenin:15 [facility] ED Fall Risk Assessment (Adult) History of falling in the last 3 months, bp including since admission No falls in past 3 months (0 pts). Abuse screen: Denies threats or abuse. Denies injuries from another. Nutritional screening: No deficits noted. Tuberculosis screening: No symptoms or risk factors identified. Assessment: 12:05 General: SEE TRIAGE NOTE. bp 15:15 Reassessment: [facility]. bp Vital Signs: 12:04 BP 192 / 108; Pulse 94; Resp 18; Temp 98.1; Pulse Ox 97% ; Weight 108.86 kg; Height 5 ap3 ft. 4 in. ; Pain 8/10; 15:18 BP 160 / 78; Pulse 85; Resp 16; Pulse Ox 100% ; bp 12:04 Body Mass Index 41.20 (108.86 kg, 162.56 cm) ap3 12:04 Pain Scale: Adult ap3 ED Course: 12:00 Patient arrived in ED. mg5 12:03 Yazan Aranda MD is Attending Physician. [facility] 12:05 Triage completed. ap3 12:05 Arm band placed on Patient placed in an exam room, on a stretcher. ap3 12:06 Chao Mendoza, RN is Primary Nurse. bp 12:32 Chest Pa And Lat (2 Views) XRAY Sent. bp 12:35 Chest Pa And Lat (2 Views) XRAY In Process Unspecified. EDMS 15:15 Patient has correct armband on for positive identification. bp 15:15 No provider procedures requiring assistance completed. Patient did not have IV access bp during this emergency room visit. Administered Medications: 12:50 Drug: Ibuprofen PO 800 mg PO once Route: PO; bp 15:01 Follow up: Response: No adverse reaction bp 15:01 Drug: AZITHromycin PO 500 mg PO once Route: PO; bp 15:01 Follow up: Response: No adverse reaction bp 15:01 Drug: predniSONE PO 60 mg PO once Route: PO; bp 15:02 Follow up: Response: No adverse reaction bp Medication: 15:15 VIS not applicable for this client. bp Outcome: 14:42 Discharge ordered by . antwon 15:15 Discharged to home ambulatory, bp 15:15 Condition: stable 15:15 Discharge instructions given to patient, Instructed on discharge instructions, follow up and referral plans. medication usage, Demonstrated understanding of instructions, follow-up care, medications, Prescriptions given X 3, 15:21 Patient left the ED. bp Signatures: Dispatcher [employer] EDAK Yazan Aranda MD MD cha Peltier, Brian, RN RN bp Melisa Pink RN RN ankita3 Darion Wayne RN RN ll1 Es Figueredo mg5
[2023-11-11 22:41] VITALS: BP 160/78; TEMP 98.1; O2SAT 100
== END ==
LOC: ER 11:50
DX: J06.9 Acute upper respiratory infection, unspecified (principal); Z11.52 Encounter for screening for COVID-19; I10 Essential (primary) hypertension; Z88.0 Allergy status to penicillin
CPT/HCPCS: 36415; 71046; 87070; 87081; 87804; 87811; J7512

== ENCOUNTER 2024-02-08 07:51 | Emergency (ER) | payer OTHER ==
[2024-02-08] MEDS ORDERED: KETOROLAC 30 MG/ML INJ ONE (08:11)
[2024-02-08] MEDS ORDERED: FAMOTIDINE 20 MG/2 ML VIAL IV ONE (08:11)
[2024-02-08] MEDS ORDERED: ONDANSETRON 4 MG/2 ML VIAL ONE (08:11)
[2024-02-08] MEDS ORDERED: NA CHLORIDE 0.9% 1,000 ML ONE (08:12)
[2024-02-08 08:28] LABS: Absolute Eosinophils 0.2 K/uL (0-0.5); Absolute Lymphocytes (CBC) 1.9 K/uL (0.7-4.9); Absolute Monocytes 0.6 K/uL (0.1-1.3); Absolute Neutrophil 3.7 K/uL (1.8-8.0); Basophils % 0.5 % (0-1.3); Hematocrit 40.3 % (36.0-45.0); Hemoglobin 13.6 g/dL (12.0-15.0); Lymphocytes % 30.1 % (15.3-44.8); MCH 30.1 pg (27.0-35.0); MCHC 33.8 g/dL (32.0-36.0); MCV 89.1 fL (80-100); MPV 10.3 fL (7.6-11.3); Monocytes % 9.4 % (3.3-12.3); Platelets 211 thou/uL (152-406); RBC Red Blood Cell Count 4.52 M/uL (3.86-4.86)
[2024-02-08 08:35] LABS: Specific Gravity 1.021 (1.005-1.030); Sqamous Epithelial <5 /HPF (None Seen); Urine Bacteria None Seen /HPF (<20); Urine Bilirubin NEGATIVE (Negative); Urine Blood Negative (Negative); Urine Clarity Clear (Clear); Urine Color Light-Yellow (Yellow); Urine Culture Reflex Order NOT NEEDED; Urine Glucose NEGATIVE (Negative); Urine Ketones NEGATIVE (Negative); Urine Microscopic Reflex YN ORDER UMIC; Urine Mucus Slight /HPF (None Seen); Urine Nitrite NEGATIVE (Negative); Urine Protein 1+ (Negative); Urine RBC <5 /HPF (None Seen); Urine Urobilinogen Normal (Normal); Urine WBC <5 /HPF (<5); Urine pH 5.5 (5.0-7.0)
[2024-02-08 08:59] LABS: Albumin/Globulin Ratio 1.1 (1.1-1.8); Anion Gap 2.1 mEq/L (5.0-15.0); Bilirubin Total 0.5 mg/dL (0.2-1.0); Globulin 3.7 g/dL (2.3-3.5); Potassium 3.1 mEq/L (3.5-5.1); Protein, Total 7.7 g/dL (6.4-8.2); Troponin High Sensitivity 4.3 pg/mL (<58.9)
[2024-02-08] MEDS ORDERED: POTASSIUM CL SA 10 MEQ TAB PO ONE (09:13)
[2024-02-08] MEDS ORDERED: KCL 20 MEQ/100 mL IVPB 100 ML IV ONE (09:13)
--- NOTE | 2024-02-08 09:29 | RAD REPORT ---
EXAM DESCRIPTION: CTAbdomen Pelvis W Contrast - 02/08/2024 9:15 am CLINICAL HISTORY: Abdominal pain. ABD PAIN COMPARISON: Abdomen Pelvis W Contrast dated 01/08/2018 TECHNIQUE: Biphasic CT imaging of the abdomen and pelvis was performed with 100 ml non-ionic IV cont rast. All CT scans are performed using dose optimization technique as appropriate and may include automated exposure control or mA/KV adjustment according to patient size. FINDINGS: The lung bases are clear. The liver demonstrates mild fatty infiltration. Benign cysts are present. No intra or extrahepatic bi liary tree dilatation. The spleen, pancreas, adrenal glands and kidneys are within normal limits. No bowel obstruction, free air, free fluid or abscess. Moderate stool is present throughout the colon . The appendix is normal. No evidence of significant lymphadenopathy. No suspicious bony findings. Prominent disc bulges lower lumbar spine. IMPRESSION: No acute intra-abdominal or pelvic finding. Prominent diffuse fatty liver.
[2024-02-08] MEDS ORDERED: NA CHLORIDE 0.9% 250 ML ONE (11:14)
--- NOTE | 2024-02-08 11:32 | EDPHYS ---
Physician Documentation [facility] Name: Astrid Gerber Age: 58 yrs Sex: Female : 1965 Arrival Date: 02/08/2024 Time: 07:51 Bed 8 Private MD: ED Physician Jaime Askew HPI: 02/07 08:08 This 58 yrs old Female presents to ER via Ambulatory with complaints of ec2 Abdominal Pain, Diarrhea. 08:08 Patient arrives today for abdominal pain ongoing for 1 day. Patient has been having ec2 upper abdominal pain. Patient reports she also having some occasional cough. Patient reports she been having some diarrhea ongoing for approximately 1 week. Patient reports no vomiting. Patient denies any fevers or chills.. Historical: - Allergies: 08:07 PENICILLINS; ap3 - PMHx: 08:07 Hypertension; ap3 - PSHx: 08:07 section; hysterectomy; ap3 - Immunization history:: Client reports receiving the 2nd dose of the Covid vaccine. - Social history:: Smoking status: unknown. ROS: 08:09 Constitutional: as per hpi ec2 Exam: 08:09 Constitutional: GEN: NAD Head: atraumatic Eyes: EOMI Ears: External ears are ec2 normal. CV: regular rate LUNGS: no respiratory distress ABD: non-distended, soft, nontender, no guarding, not rigid SKIN: no evidence of rashes MSK: no evidence of trauma NEURO: moves all extremities equally Vital Signs: 08:04 BP 160 / 102; Pulse 59; Resp 18; Temp 97.8(O); Pulse Ox 99% on R/A; Weight 106.14 kg; ap3 Height 5 ft. 4 in. ; Pain 8/10; 09:15 BP 149 / 103; Pulse 52; Resp 18; Pulse Ox 99% on R/A; db 10:00 BP 159 / 83; Pulse 62; Resp 18; Pulse Ox 98% on R/A; db 11:00 BP 114 / 62; Pulse 64; Resp 18; Temp 97.9; Pulse Ox 98% ; db 08:04 Body Mass Index 40.17 (106.14 kg, 162.56 cm) ap3 08:04 Pain Scale: Adult ap3 MDM: 08:08 Patient medically screened. ec2 08:09 Data reviewed: vital signs. ED course: Patient arrives today for abdominal pain along ec2 with diarrhea. Examination remarkable for well-appearing nontoxic dividual is otherwise in no acute distress with reassuring abdominal examination. Plan is to obtain lab work, urine studies, EKG as well as CT imaging. Evaluating for appendicitis, diverticulitis, UTI.. 08:33 ED course: EKG independently reviewed and interpreted by me, shows normal sinus rhythm, ec2 rate of 58, no acute ST segment elevations, intervals are nonconcerning. . 08:37 ED course: CBC nonactionable. Urine noninfectious appearing. . ec2 09:06 ED course: Metabolic profile shows slight hypokalemia with a potassium of 3.1. Lipase ec2 within normal ranges, troponin within normal ranges. Will supplement the patient potassium . 09:51 ED course: CT imaging shows no acute intra-abdominal process, does show fatty liver. I ec2 updated the patient regarding the results. Patient continues to receive potassium, will discharge after completion of this.. 02/07 08:08 Order name: CBC with Diff; Complete Time: 08:37 ec2 02/07 08:08 Order name: CMP; Complete Time: 09:05 ec2 02/07 08:08 Order name: Lipase; Complete Time: 09:05 ec2 07 08:08 Order name: Urinalysis w/ reflexes; Complete Time: 08:37 ec2 02/07 08:09 Order name: Troponin HS; Complete Time: 09:05 ec2 02/07 08:08 Order name: CT Abd/Pelvis - IV Contrast Only; Complete Time: 09:49 ec2 02/07 08:08 Order name: IV Saline Lock; Complete Time: 08:10 ec2 02/07 08:08 Order name: Labs collected and sent; Complete Time: 08:10 ec2 02/07 08:09 Order name: EKG - Nurse/Tech; Complete Time: 08:32 ec2 02/07 09:53 Order name: Misc. Order: d/c after IV potassium complete; Complete Time: 10:05 ec2 Administered Medications: 08:12 Drug: TORadol - Ketorolac IVP 15 mg IVP once Route: IVP; Site: right antecubital; rs5 11:48 Follow up: Response: No adverse reaction db 08:12 Drug: Ondansetron IVP 4 mg IVP once; over 2 minutes Route: IVP; Site: right antecubital;rs5 11:49 Follow up: Response: No adverse reaction db 08:13 Drug: Famotidine IVP 20 mg IVP once; dilute with 10 mL 0.9% NaCl; give over 2 minutes rs5 Route: IVP; Site: right antecubital; 11:48 Follow up: Response: No adverse reaction db 08:15 Drug: NS 0.9% IV 1000 ml IV at 1 bolus Per protocol; 1000 mL bolus Route: IV; Rate: 1 rs5 bolus; Site: right antecubital; 11:48 Follow up: Response: No adverse reaction; IV Status: Completed infusion; IV Intake: db 1000ml 09:20 Drug: Potassium Chloride IV 20 mEq IV at calculated rate once; administer over 1-2 rs5 hours Route: IV; Rate: calculated rate; Site: right antecubital; 11:35 Follow up: Response: No adverse reaction; IV Status: Completed infusion; IV Intake: db 100ml 09:20 Drug: Potassium Chloride PO 40 mEq PO once Route: PO; rs5 11:48 Follow up: Response: No adverse reaction db Disposition Summary: 02/08/24 11:31 Discharge Ordered Notes: Location: Home ec2 Condition: Stable ec2 Diagnosis - Abdominal pain, Generalized ec2 - Diarrhea, unspecified ec2 - Hypokalemia ec2 Followup: ec2 - With: Private Physician - When: - Reason: Re-evaluation by your physician Discharge Instructions: - Discharge Summary Sheet ec2 - Potassium Content of Foods ec2 - Diarrhea, Adult, [id number] ec2 Forms: - Medication Reconciliation Form ec2 - Antibiotic Education ec2 - Prescription Opioid Use ec2 - Patient Portal Instructions ec2 - Leadership Thank You Letter ec2 Prescriptions: - Zofran 4 mg Oral Tablet - take 1 tablet ORAL route every 12 hours As needed; 20 tablet; Refills: 0, ec2 Product Selection Permitted Signatures: Dispatcher [employer] Melisa May RN RN ap3 Yair Be RN RN rs5 Jaime Askew MD MD ec2 Shanti Griffin RN db Corrections: (The following items were deleted from the chart) 08:09 08:09 CBC+H.LAB.BRZ ordered. EDMS EDMS 08:09 08:09 COMPREHENSIVE METABOLIC PANEL+C.LAB.BRZ ordered. EDMS EDMS 08: 08:09 LIPASE+C.LAB.BRZ ordered. EDMS EDMS 08: 08:09 Urinalysis+U.LAB.BRZ ordered. EDMS EDMS
--- NOTE | 2024-02-08 11:32 | ER ---
Nurse's Notes [facility] Name: Astrid Gerber Age: 58 yrs Sex: Female : 1965 Arrival Date: 02/08/2024 Time: 07:51 Bed 8 Private MD: Diagnosis: Abdominal pain, Generalized;Diarrhea, unspecified;Hypokalemia Presentation: 02/07 08:04 Chief complaint: Patient states: she has been having right upper quadrant pain since ap3 approx 0100 this morning after eating what she believes to be a bad ham and cheese sand which, and is also feeling faint and dizzy X's 1 hour. patient also states she has been having diarrhea for a week. Patient currently rates her pain as a 8/10 on the pain scale. Coronavirus screen: At this time, the client does not indicate any symptoms associated with coronavirus-19. Ebola Screen: No symptoms or risks identified at this time. Initial Sepsis Screen: Does the patient meet any 2 criteria? No. Patient's initial sepsis screen is negative. Does the patient have a suspected source of infection? No. Patient's initial sepsis screen is negative. Risk Assessment: Do you want to hurt yourself or someone else? Patient reports no desire to harm self or others. Onset of symptoms was February 08, 2024 at 01:00. 08:04 Method Of Arrival: Ambulatory ap3 08:04 Acuity: JENA 3 ap3 Triage Assessment: 08:09 General: Appears in no apparent distress. Behavior is calm, cooperative, appropriate ap3 for age. Pain: Complains of pain in right upper quadrant Pain currently is 8 out of 10 on a pain scale. Pain began 0100 this morning. Neuro: Level of Consciousness is awake, alert, obeys commands, Oriented to person, place, time, situation. Cardiovascular: Patient's skin is warm and dry. Respiratory: Airway is patent Respiratory effort is even, unlabored. GI: Reports upper abdominal pain, nausea. Historical: - Allergies: 08:07 PENICILLINS; ap3 - PMHx: 08:07 Hypertension; ap3 - PSHx: 08:07 section; hysterectomy; ap3 - Immunization history:: Client reports receiving the 2nd dose of the Covid vaccine. - Social history:: Smoking status: unknown. Screenin:08 Abuse screen: Denies threats or abuse. Nutritional screening: No deficits noted. ap3 Tuberculosis screening: No symptoms or risk factors identified. 11:49 [facility] ED Fall Risk Assessment (Adult) History of falling in the last 3 months, db including since admission No falls in past 3 months (0 pts) Confusion or Disorientation No (0 pts) Intoxicated or Sedated No (0 pts) Impaired Gait No (0 pts) Mobility Assist Device Used No (0 pt) Altered Elimination No (0 pt) Score/Fall Risk Level 0 - 2 = Low Risk Oriented to surroundings, Maintained a safe environment. Assessment: 08:00 General: Appears in no apparent distress. uncomfortable, Behavior is calm, cooperative. rs5 Pain: Complains of pain in abdomen Pain currently is 7 out of 10 on a pain scale. Quality of pain is described as aching, Is continuous. Neuro: Level of Consciousness is awake, alert, obeys commands, Oriented to person, place, time, situation. Cardiovascular: Patient's skin is warm and dry. Rhythm is regular. Respiratory: Airway is patent Respiratory effort is even, unlabored, Respiratory pattern is regular, symmetrical. GI: Abdomen is round non-distended, Bowel sounds present X 4 quads. Abd is soft and non tender X 4 quads. Reports nausea. : No signs and/or symptoms were reported regarding the genitourinary system. EENT: No signs and/or symptoms were reported regarding the EENT system. Derm: Skin is intact, Skin is dry, Skin is normal, Skin temperature is warm. Musculoskeletal: Range of motion: intact in all extremities. 09:05 Reassessment: Patient and/or family updated on plan of care and expected duration. Pain rs5 level reassessed. Patient is alert, oriented x 3, equal unlabored respirations, skin warm/dry/pink. Patient states feeling better. Patient states symptoms have improved. 10:00 Reassessment: Patient appears in no apparent distress at this time. Patient and/or db family updated on plan of care and expected duration. Pain level reassessed. Patient is alert, oriented x 3, equal unlabored respirations, skin warm/dry/pink. 10:13 Reassessment: No changes from previously documented assessment. rs5 11:15 Reassessment: Patient and/or family updated on plan of care and expected duration. Pain rs5 level reassessed. Patient is alert, oriented x 3, equal unlabored respirations, skin warm/dry/pink. Patient denies pain at this time. Patient states feeling better. Vital Signs: 08:04 BP 160 / 102; Pulse 59; Resp 18; Temp 97.8(O); Pulse Ox 99% on R/A; Weight 106.14 kg; ap3 Height 5 ft. 4 in. ; Pain 8/10; 09:15 BP 149 / 103; Pulse 52; Resp 18; Pulse Ox 99% on R/A; db 10:00 BP 159 / 83; Pulse 62; Resp 18; Pulse Ox 98% on R/A; db 11:00 BP 114 / 62; Pulse 64; Resp 18; Temp 97.9; Pulse Ox 98% ; db 08:04 Body Mass Index 40.17 (106.14 kg, 162.56 cm) ap3 08:04 Pain Scale: Adult ap3 ED Course: 07:53 Patient arrived in ED. im 07:54 Jaime Askew MD is Attending Physician. ec2 08:00 No provider procedures requiring assistance completed. rs5 08:07 Triage completed. ap3 08:09 Arm band placed on right wrist. ap3 08:10 Yair Be, RN is Primary Nurse. rs5 08:32 EKG done. [email or web address] 09:15 CT Abd/Pelvis - IV Contrast Only In Process Unspecified. EDMS 11:49 Patient has correct armband on for positive identification. Bed in low position. Call db light in reach. Side rails up X 1. Provided Education on: DISCHARGE. Pulse ox on. NIBP on. 11:49 IV discontinued, intact, bleeding controlled, No redness/swelling at site. db Administered Medications: 08:12 Drug: TORadol - Ketorolac IVP 15 mg IVP once Route: IVP; Site: right antecubital; rs5 11:48 Follow up: Response: No adverse reaction db 08:12 Drug: Ondansetron IVP 4 mg IVP once; over 2 minutes Route: IVP; Site: right antecubital;rs5 11:49 Follow up: Response: No adverse reaction db 08:13 Drug: Famotidine IVP 20 mg IVP once; dilute with 10 mL 0.9% NaCl; give over 2 minutes rs5 Route: IVP; Site: right antecubital; 11:48 Follow up: Response: No adverse reaction db 08:15 Drug: NS 0.9% IV 1000 ml IV at 1 bolus Per protocol; 1000 mL bolus Route: IV; Rate: 1 rs5 bolus; Site: right antecubital; 11:48 Follow up: Response: No adverse reaction; IV Status: Completed infusion; IV Intake: db 1000ml 09:20 Drug: Potassium Chloride IV 20 mEq IV at calculated rate once; administer over 1-2 rs5 hours Route: IV; Rate: calculated rate; Site: right antecubital; 11:35 Follow up: Response: No adverse reaction; IV Status: Completed infusion; IV Intake: db 100ml 09:20 Drug: Potassium Chloride PO 40 mEq PO once Route: PO; rs5 11:48 Follow up: Response: No adverse reaction db Medication: 11:49 VIS not applicable for this client. db Intake: 11:35 IV: 100ml; Total: 100ml. db 11:48 IV: 1000ml; Total: 1100ml. db Outcome: 11:31 Discharge ordered by MD. [email or web address] 11:49 Discharged to home ambulatory, with family, db 11:49 Condition: stable 11:49 Discharge instructions given to patient, Instructed on discharge instructions, follow up and referral plans. Prescriptions given X 1, 11:50 Patient left the ED. db Signatures: Dispatcher [employer] Melisa May RN RN ap3 Shanti Griffin RN RN Yair Perry RN RN rs5 Rose Dasilva Edwin, MD MD ec2 Chong Hidalgo [email or web address]
[2024-02-08 12:22] VITALS: BP 114/62; TEMP 97.9; O2SAT 98
--- NOTE | 2024-02-09 13:08 | EKG ---
Test Date: 2024-02-08 Test Time: 08:28:16 Diesel Instructor: ZIA MEASUREMENT RESULTS: Intervals: Rate: 58 [place]: 180 QRSD: 94 QT: 412 QTc: 404 [place]: P: 55 [place]: 180 QRS: 87 T: 58 INTERPRETIVE STATEMENTS: Sinus bradycardia Otherwise normal ECG Compared to ECG 01/19/2018 02:45:29 Sinus rhythm no longer present Electronically Signed On 02-09-24 13:07:00 CDT by Huber Romero
== END 2024-02-08 11:50 | disposition home or self-care (01) ==
LOC: ER 07:51
DX: R10.84 Generalized abdominal pain (principal); E87.6 Hypokalemia; R19.7 Diarrhea, unspecified; I10 Essential (primary) hypertension; Z88.0 Allergy status to penicillin
CPT/HCPCS: 93005; 85025; 81001; 36415; 84484; 83690; 80053; 74177; Q9967; J3480; J2405; J7050; J7030

== ENCOUNTER 2025-01-03 17:25 | Emergency (ER) | payer OTHER ==
--- NOTE | 2025-01-03 18:38 | RAD REPORT ---
Exam:Shoulder Right 2+ Views History: Right shoulder pain Findings: No fracture or dislocation seen Subchondral cysts right humeral head. Mild narrowing glenohumeral joint.
--- NOTE | 2025-01-03 19:20 | ER ---
Nurse's Notes [facility] Name: Astrid Gerber Age: 59 yrs Sex: Female : 1965 Arrival Date: 01/03/2025 Time: 17:25 Bed 10 Private MD: Diagnosis: Rotator cuff tendinitis;Monoarthritis, not elsewhere classified, right shoulder Presentation: 01/03 17:39 Chief complaint: Patient states: has been having trouble with my right shoulder and iw it's keeping me awake at night, bothering her for a few months. Coronavirus screen: At this time, the client does not indicate any symptoms associated with coronavirus-19. Ebola Screen: No symptoms or risks identified at this time. Initial Sepsis Screen: Does the patient meet any 2 criteria? No. Patient's initial sepsis screen is negative. Does the patient have a suspected source of infection? No. Patient's initial sepsis screen is negative. Risk Assessment: Do you want to hurt yourself or someone else? Patient reports no desire to harm self or others. 17:39 Method Of Arrival: Ambulatory iw 17:39 Acuity: JENA 4 iw Historical: - Allergies: 17:40 PENICILLINS; iw - PMHx: 17:40 Hypertension; iw - PSHx: 17:40 section; hysterectomy; iw - Infectious Disease History:: Denies. - Family history:: not pertinent. - Hospitalizations: : No recent hospitalization is reported. Screenin:54 [facility] ED Fall Risk Assessment (Adult) History of falling in the last 3 months, kc6 including since admission No falls in past 3 months (0 pts) Confusion or Disorientation No (0 pts) Intoxicated or Sedated No (0 pts) Impaired Gait No (0 pts) Mobility Assist Device Used No (0 pt) Altered Elimination No (0 pt) Score/Fall Risk Level 0 - 2 = Low Risk Oriented to surroundings, Maintained a safe environment, Educated pt \T\ family on fall prevention, incl call for assistance when getting out of bed. Abuse screen: Denies threats or abuse. Denies injuries from another. Nutritional screening: No deficits noted. Tuberculosis screening: No symptoms or risk factors identified. Assessment: 17:53 General: Appears in no apparent distress. comfortable, well groomed, well developed, kc6 Behavior is calm, cooperative, appropriate for age. Pain: Complains of pain in right shoulder Pain radiates to right arm Pain currently is 8 out of 10 on a pain scale. Pain began greater than 3mo Is episodic. Neuro: Level of Consciousness is awake, alert, obeys commands, Oriented to person, place, time, situation, Appropriate for age. Respiratory: Airway is patent Trachea midline Respiratory effort is even, unlabored, Respiratory pattern is regular, symmetrical. Derm: No signs and/or symptoms reported regarding the dermatologic system. Skin is intact, is healthy with good turgor, Skin is pink, warm \T\ dry. Musculoskeletal: Circulation, motion, and sensation intact. Capillary refill < 3 seconds, Range of motion: intact in all extremities. 18:42 Reassessment: Patient appears in no apparent distress at this time. No changes from kc6 previously documented assessment. Patient and/or family updated on plan of care and expected duration. Pain level reassessed. Patient is alert, oriented x 3, equal unlabored respirations, skin warm/dry/pink. Vital Signs: 17:39 BP 179 / 101; Pulse 93; Resp 16; Temp 97.6; Pulse Ox 100% on R/A; iw 19:50 BP 153 / 87; Pulse 85; Resp 16; Temp 97.9; Pulse Ox 100% on R/A; Pain 4/10; dd2 19:50 Pain Scale: Adult dd2 ED Course: 17:33 Patient arrived in ED. al6 17:34 Steve Meadows MD is Attending Physician. rn 17:40 Triage completed. iw 17:43 Arm band placed on. iw 17:53 Dahlia Ruiz, RN is Primary Nurse. kc6 17:54 Patient has correct armband on for positive identification. Bed in low position. Call [facility] light in reach. Adult w/ patient. Pulse ox on. NIBP on. Door closed. Noise minimized. Lights dimmed. Warm blanket given. Pillow given. Verbal reassurance given. 17:54 Patient maintains SpO2 saturation greater than 95% on room air. kc6 18:16 XRAY Shoulder RIGHT 2 view In Process Unspecified. EDMS 19:18 Darnell Sánchez MD is Referral Physician. rn 19:50 Provided Education on: D/C EDUCATION, MEDICATION AND F/U. dd2 19:50 No provider procedures requiring assistance completed. Patient did not have IV access dd2 during this emergency room visit. Administered Medications: No medications were administered Medication: 19:50 VIS not applicable for this client. dd2 Outcome: 19:20 Discharge ordered by . rn 19:50 Discharged to home ambulatory, dd2 19:50 Condition: stable 19:50 Discharge instructions given to patient, Instructed on discharge instructions, follow up and referral plans. medication usage, Demonstrated understanding of instructions, follow-up care, medications, Prescriptions given X 2, 19:51 Patient left the ED. dd2 Signatures: Dispatcher [employer] EDMague Christianson, RN YANICK iw Steve Meadows MD MD rn Campbell, Kaitlyn, RN RN kc6 MICHELE MATSON RN RN dd2 Desire Guillen
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
[2025-01-03 19:57] VITALS: O2SAT 100
[2025-01-03 19:58] VITALS: BP 153/87; TEMP 97.9
== END 2025-01-03 19:51 | disposition home or self-care (01) ==
LOC: ER 17:25
DX: M13.111 Monoarthritis, not elsewhere classified, right shoulder (principal); M77.8 Other enthesopathies, not elsewhere classified